=== PATIENT | male | born 1940 | race Caucasian/White ===

== ENCOUNTER 2016-09-03 01:22 | Inpatient (IN) | payer OTHER ==
[~2016-09-03] VITALS: Ht 180.3 cm; Wt 125.8 kg
[~2016-09-03 01:22] MED LIST: ACCOLATE20 MG PO; ADVAIR 250/501 DISK IH; ALLOPURINOL100 MG PO; ALTACE10 MG PO; APRESOLINE100 MG PO; B100 BALANCED100 MG PO; BENTYL20 MG PO; BYSTOLIC10 MG PO; CARDURA2 M1 PO; CATAPRES0.1 MG PO; CATAPRES0.2 MG PO; CELEBREX200 MG PO; CLONIDINE HCL0.2 MG PO; COLACE100 MG PO; COLESTID1 GM PO; COUMADIN,JANTOVE4 MG PO; COUMADIN,JANTOVE5 MG PO; COUMADIN2 MG PO; COUMADIN3 MG PO; COUMADIN4 MG PO; CYCLOBENZAPRINE10 MG PO; Coumadin PO; DAILY VITAMIN1 EAC4 PO; DICYCLOMINE HCL20 MG PO; DIGITEK250 MC2 PO; DIGOX250 MCG PO; DIGOXIN; DIGOXIN250 MCG PO; DOXAZOSIN MESYLA2 MG PO; DUONEB 2.5-0.5 M3 ML AEROSOL; DUONEB 2.5-0.5 M3 ML IH; ERGOCALCIF50000 UNIT PO; FENOFIBRATE160 M1 PO; FENOFIBRIC ACI135 MG PO; FEOSOL325 MG PO; FERRALET 90 TA1 EACH PO; FISH OIL 1,0001 EA10 PO; FISH OIL 1,0001 EAC7 PO; FISH OIL300 MG PO; FLECAINIDE ACE100 M1 PO; FLEXERIL10 MG PO; FLONASE16 G1 BOTH NARES; FUROSEMIDE40 MG PO; HYDRALAZINE HC100 MG PO; HYDROCODON-ACE1 EAC7 PO; HYDROCODON-ACE1 EAC8 PO; INVOKANA100 MG PO; IPRATR-ALBUTEROL3 ML IH; IRON27 MG PO; IRON325 M1 PO; JANUVIA100 MG PO; K-DUR10 MEQ PO; LANOXIN250 MCG PO; LASIX40 MG PO; LEVEMIR FL100 UNIT/1 SC; LEVEMIR FL100 UNITS/ SC; LEVO-T125 MCG PO; LEVOTHROID112 MCG PO; LEVOTHYROXINE112 MCG PO; LEVOTHYROXINE125 MCG PO; LIDOCAINE700 MG TD; LOPRESSOR50 MG PO; LOVAZA1 GM PO; MAXZIDE 75/501 EACH PO; MAXZIDE 75/51 TABLET PO; MEDROL4 MG PO; METAMUCIL PACKE1 PKT PO; METAMUCIL POWD798 GM PO; METOCLOPRAMIDE10 MG PO; METOLAZONE10 MG PO; METOLAZONE2.5 MG PO; METOLAZONE5 MG PO; METOPROLOL SUCC50 MG PO; METOPROLOL TART50 MG PO; MULTI-VITAMIN1 EAC4 PO; MULTIVITAMIN PO; NIASPAN500 MG PO; NITROQUICK0.4 MG PO; NORCO 5/3251 TABLET PO; NORCO 7.5/321 TABLET PO; NORVASC10 MG PO; NOVOLOG 10100 UNITS/ SC; NOVOLOG PE100 UNITS/ SC; NOVOLOG100 UNIT/1 SC; OMEPRAZOLE40 M1 PO; OXYCONTIN10 MG PO; PERCOCET 5/31 TABLET PO; PREDNISONE50 MG PO; PRILOSEC40 MG PO; PROTONIX40 MG PO; RAMIPRIL10 MG PO; SAW PALMETTO450 MG PO; SPIRIVA RESPIMAT4 GM IH; SPIRONOLACTONE50 MG PO; STOOL SOFTENER100 M1 PO; STOOL SOFTENER100 MG PO; SYNTHROID112 MCG PO; SYNTHROID150 MCG PO; SYNTHROID50 MCG PO; TRAMADOL HCL50 MG PO; TRESIBA FL200 UNIT/1 SC; TRIAMTERENE/HC1 EACH PO; TRILIPIX135 MG PO; TYLENOL EXTRA500 MG PO; ULTRAM ER100 MG PO; ULTRAM50 MG PO; UROXATRAL10 MG PO; VITAMIN B-12500 MC2 PO; VITAMIN B12 100MCG PO; VITAMIN B12-FO1 EACH PO; VITAMIN D31000 UNI2 PO; VITAMIN D31000 UNIT PO; VITAMIN D3400 UNI1 PO; VITAMIN D3400 UNIT PO; VITAMIN D34000 UNIT PO; WARFARIN SODIUM2 MG PO; WARFARIN SODIUM3 MG PO; WELCHOL3.75 GM PO; XOPENEX HFA15 GM IH; ZAFIRLUKAST20 M1 PO; ZITHROMAX250 MG PO; ZYRTEC10 M2 PO; levemir SC; novolog
[2016-09-03 02:19] LABS: POINT-OF-CARE METER ID UU13113702; POINT-OF-CARE USER ID 611181311
[2016-09-03 02:26] LABS: EOSINOPHIL (%) 0 % (0-5); HEMATOCRIT 26.3 % (38.0-50.0); IMMATURE GRANULOCYTE (%) 0.8 % (0.0-0.7); IMMATURE GRANULOCYTE COUNT 0.1 K/uL; INSTRUMENT ABS NEUTROPHIL CT 5.8 K/uL; LYMPHOCYTE COUNT 0.6 K/uL (1.0-2.8); MCH 27.5 PG (29.0-34.0); MCHC 31.2 G/DL (30.0-36.0); MCV 88.3 FL (86-99); MEAN PLAT.VOLUME 10.3 uM^3 (9.0-12.4); MONOCYTE (%) 8.6 % (3-12); MONOCYTE COUNT 0.6 K/uL (0-0.8); NEUTROPHIL (%) 81.8 % (45-76); NEUTROPHIL COUNT 5.8 K/uL (1.8-6.4); PLATELET COUNT 122 K/uL (156-360); RBC DIS.WIDTH-CV 17.8 % (11.8-14.6); RBC DIS.WIDTH-SD 54.6 % (39-53); RED BLOOD COUNT 2.98 M/uL (4.00-5.50); WHITE BLOOD COUNT 7.1 K/uL (4.1-10.2)
[2016-09-03 02:34] LABS: INTER. NORMALIZED RATIO 1.4; PTT 33.4 (25-32)
[2016-09-03 02:36] LABS: CHLORIDE 112 mEq/L (99-109); POTASSIUM 3.4 mEq/L (3.7-5.4); SODIUM 145 mEq/L (136-147)
[2016-09-03 02:38] LABS: GLUCOSE 133 mg/dL (70-99)
[2016-09-03 02:40] LABS: ANION GAP 12 MEQ/L (2-14)
[2016-09-03 02:42] LABS: GFR ESTIMATE (CALCULATED) 39 mL/min/
[2016-09-03 02:43] LABS: ALKALINE PHOSPHATASE 203 IU/L (3-129)
[2016-09-03 02:44] LABS: UREA NITROGEN (BUN) 72 mg/dL (9-23)
[2016-09-03 02:45] LABS: SALICYLATE < 5.0 MG/DL (15-30); TROP-I INTERPRETATION NEGATIVE; TROPONIN-I 0.05 ng/mL (0.0-0.30)
[2016-09-03 03:57] LABS: ADD MIUA? YES; BILIRUBIN NEGATIVE; BLOOD SMALL; COLOR YELLOW ((YELLOW)); GLUCOSE (STRIP) NEGATIVE; KETONES NEGATIVE; LEUKOCYTES SMALL; NITRITE NEGATIVE; PROTEIN (STRIP) NEGATIVE; SPECIFIC GRAVITY 1.011 (1.000-1.030); UROBILINOGEN 0.2 MG/DL (0.2-1.0)
[2016-09-03 04:03] LABS: BACTERIA NONE SEEN /HPF; EPITHELIAL CELLS RARE /HPF; HYALINE CASTS 15-20 /LPF; MUCUS NONE SEEN /LPF; RED BLOOD CELLS 0-5 /HPF (0-5); UCUL ADDED? NO; WHITE BLOOD CELLS 0-5 /HPF (0-5)
[2016-09-03 04:08] LABS: BASE EXCESS 0.6 mEq/L (-3 to +3); BICARBONATE 22.4 mEq/L (22-26); CARBOXY HGB 1.4 % (0-5); METHEMOGLOBIN 0.9 % (0-1.5); PCO2 25 mm Hg (35-45); PO2 136 mm Hg (80-100); pH 7.56 (7.35-7.45)
[2016-09-03 04:09] LABS: DEVICE NC; O2 FLOW 3 L/MIN; SITE LR; TOTAL RESP RATE 20 resp/min
[2016-09-03 05:24] LABS: IRON 99 MCG/DL (35-150)
[2016-09-03 05:47] VITALS: BP 136/63
[2016-09-03 06:08] VITALS: BP 137/55
[2016-09-03 06:13] LABS: DIGOXIN 0.9 ng/mL (0.8-2.0)
[2016-09-03 07:04] VITALS: BP 145/69
[2016-09-03 08:31] LABS: FERRITIN 889 NG/ML (22-322)
[2016-09-03] MEDS ORDERED: TRESIBA FL100 UNIT/1 SC (08:56)
[2016-09-03] MEDS ORDERED: BYSTOLIC20 MG PO (08:57)
[2016-09-03] MEDS ORDERED: FLOMAX0.4 MG PO (09:00)
[2016-09-03] MEDS ORDERED: BREO ELLIPTA I1 EACH IH (09:02)
[2016-09-03] MEDS ORDERED: COUMADIN3 MG PO (09:05)
[2016-09-03] MEDS ORDERED: NYSTATIN-TRIAMC15 GM TP (09:11)
[2016-09-03 16:04] VITALS: BP 128/60
[2016-09-03 21:55] LABS: POINT-OF-CARE METER ID UU13113725
[2016-09-03 23:05] VITALS: BP 128/60
[2016-09-04 06:50] VITALS: BP 129/60
[2016-09-04 07:12] LABS: HEMATOCRIT 26.7 % (38.0-50.0); MCH 28.8 PG (29.0-34.0); MCHC 31.5 G/DL (30.0-36.0); MCV 91.4 FL (86-99); MEAN PLAT.VOLUME 11.2 uM^3 (9.0-12.4); PLATELET COUNT 116 K/uL (156-360); RBC DIS.WIDTH-CV 18.2 % (11.8-14.6); RED BLOOD COUNT 2.92 M/uL (4.00-5.50); WHITE BLOOD COUNT 5.3 K/uL (4.1-10.2)
[2016-09-04 07:40] LABS: ALKALINE PHOSPHATASE 162 IU/L (3-129); ANION GAP 12 MEQ/L (2-14); CHLORIDE 118 MEQ/L (99-109); GFR ESTIMATE (CALCULATED) 53 mL/min/; POTASSIUM 3.1 MEQ/L (3.7-5.4); SAMPLE HEMOLYSIS CHECK 0; SAMPLE ICTERIC CHECK 0; SAMPLE LIPEMIA CHECK 0; SODIUM 151 MEQ/L (136-147); TOTAL BILIRUBIN 0.9 MG/DL (0.0-1.0); UREA NITROGEN (BUN) 60 mg/dL (9-23)
[2016-09-04 07:46] LABS: GLUCOSE 43 mg/dL (70-99)
[2016-09-04 07:54] LABS: INTER. NORMALIZED RATIO 1.5; PROTHROMBIN TIME 15.2 (9.2-11.2)
[2016-09-04 12:10] VITALS: BP 122/58
[2016-09-04 13:13] LABS: TYPE OF FLUID PARACENTESIS
[2016-09-04 13:36] LABS: BODY FLUID RBC'S 3000 /MM^3 (0-100); BODY FLUID WBC'S 1515 /MM^3 (0-500)
[2016-09-04 13:47] LABS: BODY FLUID LDH 66 IU/L
[2016-09-04 14:11] LABS: BODY FLUID EOSINOPHILS 0 % (0-25); MONO RAW COUNT 94; MONONUCLEAR WBC'S 94 %; POLY RAW COUNT 6; POLYNUCLEAR WBC'S 6 % (0-25)
[2016-09-04 15:00] VITALS: BP 126/61
[2016-09-04 16:37] LABS: POINT-OF-CARE METER ID UU13113725
[2016-09-05 06:51] LABS: EOSINOPHIL (%) 0 % (0-5); HEMATOCRIT 28.1 % (38.0-50.0); IMMATURE GRANULOCYTE (%) 0.5 % (0.0-0.7); INSTRUMENT ABS NEUTROPHIL CT 6.1 K/uL; LYMPHOCYTE COUNT 0.7 K/uL (1.0-2.8); MCH 28.5 PG (29.0-34.0); MCHC 30.6 G/DL (30.0-36.0); MEAN PLAT.VOLUME 10.7 uM^3 (9.0-12.4); MONOCYTE (%) 7.5 % (3-12); MONOCYTE COUNT 0.6 K/uL (0-0.8); NEUTROPHIL (%) 82.6 % (45-76); NEUTROPHIL COUNT 6.1 K/uL (1.8-6.4); PLATELET COUNT 126 K/uL (156-360); RBC DIS.WIDTH-CV 18.6 % (11.8-14.6); RBC DIS.WIDTH-SD 61.9 % (39-53); RED BLOOD COUNT 3.02 M/uL (4.00-5.50); WHITE BLOOD COUNT 7.4 K/uL (4.1-10.2)
[2016-09-05 07:25] LABS: INTER. NORMALIZED RATIO 1.6; PROTHROMBIN TIME 16.7 (9.2-11.2)
[2016-09-05 07:32] LABS: ANION GAP 10 MEQ/L (2-14); CHLORIDE 113 MEQ/L (99-109); GFR ESTIMATE (CALCULATED) 53 mL/min/; POTASSIUM 2.8 MEQ/L (3.7-5.4); SAMPLE HEMOLYSIS CHECK 0; SAMPLE ICTERIC CHECK 0; SAMPLE LIPEMIA CHECK 0; SODIUM 145 MEQ/L (136-147); TOTAL BILIRUBIN 0.9 MG/DL (0.0-1.0); UREA NITROGEN (BUN) 60 mg/dL (9-23)
[2016-09-05 07:33] LABS: ALKALINE PHOSPHATASE 219 IU/L (3-129); GLUCOSE 38 mg/dL (70-99)
[2016-09-05 08:12] VITALS: BP 136/58
[2016-09-05 08:13] LABS: POINT-OF-CARE METER ID UU13113725
[2016-09-05 15:17] VITALS: BP 103/60
[2016-09-05 15:28] VITALS: BP 170/93
[2016-09-05 17:45] LABS: POINT-OF-CARE METER ID UU13113725
[2016-09-05 21:48] LABS: POINT-OF-CARE METER ID UU13113725
[2016-09-06 00:09] LABS: POINT-OF-CARE METER ID UU13113725
[2016-09-06 05:03] LABS: POINT-OF-CARE METER ID UU13113725
[2016-09-06 05:32] LABS: EOSINOPHIL (%) 0 % (0-5); HEMATOCRIT 29.7 % (38.0-50.0); IMMATURE GRANULOCYTE (%) 0.7 % (0.0-0.7); IMMATURE GRANULOCYTE COUNT 0.1 K/uL; INSTRUMENT ABS NEUTROPHIL CT 7.3 K/uL; LYMPHOCYTE COUNT 0.7 K/uL (1.0-2.8); MCHC 30.6 G/DL (30.0-36.0); MCV 91.4 FL (86-99); MEAN PLAT.VOLUME 11.1 uM^3 (9.0-12.4); MONOCYTE (%) 6.2 % (3-12); MONOCYTE COUNT 0.5 K/uL (0-0.8); NEUTROPHIL (%) 84.9 % (45-76); NEUTROPHIL COUNT 7.3 K/uL (1.8-6.4); PLATELET COUNT 120 K/uL (156-360); RBC DIS.WIDTH-CV 18.5 % (11.8-14.6); RBC DIS.WIDTH-SD 59.7 % (39-53); RED BLOOD COUNT 3.25 M/uL (4.00-5.50); WHITE BLOOD COUNT 8.6 K/uL (4.1-10.2)
[2016-09-06 06:02] LABS: ALKALINE PHOSPHATASE 207 IU/L (3-129); ANION GAP 12 MEQ/L (2-14); CHLORIDE 108 MEQ/L (99-109); GFR ESTIMATE (CALCULATED) 48 mL/min/; INTER. NORMALIZED RATIO 1.7; POTASSIUM 3.2 MEQ/L (3.7-5.4); PROTHROMBIN TIME 18.1 (9.2-11.2); SAMPLE HEMOLYSIS CHECK 0; SAMPLE ICTERIC CHECK 0; SAMPLE LIPEMIA CHECK 0; SODIUM 140 MEQ/L (136-147); UREA NITROGEN (BUN) 57 mg/dL (9-23)
[2016-09-06 06:03] LABS: GLUCOSE 114 mg/dL (70-99); TOTAL BILIRUBIN 0.7 MG/DL (0.0-1.0)
[2016-09-06 07:51] VITALS: BP 134/57
[2016-09-06 11:39] LABS: POINT-OF-CARE METER ID UU13113725
[2016-09-06 16:18] VITALS: BP 117/58
[2016-09-06 17:08] LABS: POINT-OF-CARE METER ID UU13113725
[2016-09-06 23:38] VITALS: BP 99/52
[2016-09-07 06:46] LABS: EOSINOPHIL (%) 0 % (0-5); IMMATURE GRANULOCYTE (%) 0.5 % (0.0-0.7); INSTRUMENT ABS NEUTROPHIL CT 4.1 K/uL; LYMPHOCYTE COUNT 0.9 K/uL (1.0-2.8); MCH 28.5 PG (29.0-34.0); MCV 91.8 FL (86-99); MEAN PLAT.VOLUME 11.1 uM^3 (9.0-12.4); MONOCYTE (%) 8.2 % (3-12); MONOCYTE COUNT 0.5 K/uL (0-0.8); NEUTROPHIL (%) 74.3 % (45-76); NEUTROPHIL COUNT 4.1 K/uL (1.8-6.4); PLATELET COUNT 106 K/uL (156-360); RBC DIS.WIDTH-CV 18.6 % (11.8-14.6); RBC DIS.WIDTH-SD 61.1 % (39-53); RED BLOOD COUNT 3.16 M/uL (4.00-5.50); WHITE BLOOD COUNT 5.5 K/uL (4.1-10.2)
[2016-09-07 06:48] LABS: INTER. NORMALIZED RATIO 1.9; PROTHROMBIN TIME 20.1 (9.2-11.2)
[2016-09-07 07:07] LABS: ALKALINE PHOSPHATASE 159 IU/L (3-129); ANION GAP 8 MEQ/L (2-14); CHLORIDE 110 MEQ/L (99-109); GFR ESTIMATE (CALCULATED) 45 mL/min/; GLUCOSE 89 mg/dL (70-99); POTASSIUM 3.3 MEQ/L (3.7-5.4); SAMPLE HEMOLYSIS CHECK 0; SAMPLE ICTERIC CHECK 0; SAMPLE LIPEMIA CHECK 0; SODIUM 140 MEQ/L (136-147); TOTAL BILIRUBIN 0.7 MG/DL (0.0-1.0); UREA NITROGEN (BUN) 56 mg/dL (9-23)
[2016-09-07 07:15] VITALS: BP 114/58
[2016-09-07 08:19] LABS: POINT-OF-CARE METER ID UU13113725
[2016-09-07 09:29] VITALS: BP 125/58
[2016-09-07 12:21] VITALS: BP 128/59
[2016-09-07 12:22] LABS: POINT-OF-CARE METER ID UU13113725
[2016-09-07 15:58] VITALS: BP 120/58
[2016-09-07 18:17] LABS: POINT-OF-CARE METER ID UU13113725
[2016-09-07 21:34] LABS: POINT-OF-CARE METER ID UU13113725
[2016-09-07 21:55] VITALS: BP 125/58
[2016-09-07 23:22] VITALS: BP 121/56
[2016-09-08 06:08] LABS: EOSINOPHIL (%) 0 % (0-5); HEMATOCRIT 28.5 % (38.0-50.0); IMMATURE GRANULOCYTE (%) 0.8 % (0.0-0.7); INSTRUMENT ABS NEUTROPHIL CT 3.5 K/uL; MCH 28.9 PG (29.0-34.0); MCHC 31.2 G/DL (30.0-36.0); MCV 92.5 FL (86-99); MEAN PLAT.VOLUME 10.8 uM^3 (9.0-12.4); MONOCYTE (%) 9.6 % (3-12); MONOCYTE COUNT 0.5 K/uL (0-0.8); NEUTROPHIL (%) 69.9 % (45-76); NEUTROPHIL COUNT 3.5 K/uL (1.8-6.4); PLATELET COUNT 101 K/uL (156-360); RBC DIS.WIDTH-CV 19.1 % (11.8-14.6); RBC DIS.WIDTH-SD 62.8 % (39-53); RED BLOOD COUNT 3.08 M/uL (4.00-5.50)
[2016-09-08 06:35] VITALS: BP 113/56
[2016-09-08 06:36] LABS: ALKALINE PHOSPHATASE 169 IU/L (3-129); ANION GAP 7 MEQ/L (2-14); CHLORIDE 110 MEQ/L (99-109); GFR ESTIMATE (CALCULATED) 53 mL/min/; GLUCOSE 87 mg/dL (70-99); INTER. NORMALIZED RATIO 1.8; PROTHROMBIN TIME 18.3 (9.2-11.2); SAMPLE HEMOLYSIS CHECK 0; SAMPLE ICTERIC CHECK 0; SAMPLE LIPEMIA CHECK 0; SODIUM 139 MEQ/L (136-147); TOTAL BILIRUBIN 0.7 MG/DL (0.0-1.0); UREA NITROGEN (BUN) 55 mg/dL (9-23)
[2016-09-08 06:37] LABS: POINT-OF-CARE METER ID UU13113725
[2016-09-08 06:48] LABS: POTASSIUM 4.1 MEQ/L (3.7-5.4)
[2016-09-08 11:30] LABS: POINT-OF-CARE METER ID UU13113725
[2016-09-08] MEDS ORDERED: DUONEB 2.5-0.5 M3 ML AEROSOL (12:52)
[2016-09-08] MEDS ORDERED: XIFAXAN550 MG PO (12:52)
[2016-09-08] MEDS ORDERED: CLONIDINE HCL0.2 MG PO (12:53)
[2016-09-08] MEDS ORDERED: BYSTOLIC20 MG PO (12:53)
[2016-09-08] MEDS ORDERED: ENULOSE10 GM/15 M PO (12:55)
[2016-09-08] MEDS ORDERED: TRESIBA FL100 UNIT/1 SC (12:56)
[2016-09-08 15:10] VITALS: BP 123/56
== END 2016-09-08 16:53 | DRG 442 ==
LOC: EME 01:22 → 5EAST 04:26 → EDOF 04:26 → 5EAST 15:00
PROVIDERS: Emergency Medicine; Hospitalist; Internal Medicine
PROC: 30233N1 Transfusion of Nonautologous Red Blood Cells into Peripheral Vein, Percutaneous Approach (ICD-10-PCS; principal; 2016-09-03)
PROC: 0W9G30Z Drainage of Peritoneal Cavity with Drainage Device, Percutaneous Approach (ICD-10-PCS; 2016-09-04)
DX: K72.90 Hepatic failure, unspecified without coma (principal); E87.4 Mixed disorder of acid-base balance; L89.322 Pressure ulcer of left buttock, stage 2; L97.521 Non-pressure chronic ulcer of other part of left foot limited to breakdown of skin; L97.821 Non-pressure chronic ulcer of other part of left lower leg limited to breakdown of skin; D69.6 Thrombocytopenia, unspecified; R18.8 Other ascites; I13.0 Hypertensive heart and chronic kidney disease with heart failure and stage 1 through stage 4 chronic kidney disease, or unspecified chronic kidney disease; N18.9 Chronic kidney disease, unspecified; I50.22 Chronic systolic (congestive) heart failure; E11.622 Type 2 diabetes mellitus with other skin ulcer; E11.22 Type 2 diabetes mellitus with diabetic chronic kidney disease; I48.91 Unspecified atrial fibrillation; E87.6 Hypokalemia; T88.8XXA Other specified complications of surgical and medical care, not elsewhere classified, initial encounter; Y84.4 Aspiration of fluid as the cause of abnormal reaction of the patient, or of later complication, without mention of misadventure at the time of the procedure; Y92.230 Patient room in hospital as the place of occurrence of the external cause; I87.8 Other specified disorders of veins; I89.0 Lymphedema, not elsewhere classified; J44.9 Chronic obstructive pulmonary disease, unspecified; K22.0 Achalasia of cardia; R13.12 Dysphagia, oropharyngeal phase; K21.9 Gastro-esophageal reflux disease without esophagitis; K74.69 Other cirrhosis of liver; D64.9 Anemia, unspecified; E03.9 Hypothyroidism, unspecified; E66.01 Morbid (severe) obesity due to excess calories; Z68.38 Body mass index [BMI] 38.0-38.9, adult; Z79.01 Long term (current) use of anticoagulants; Z79.4 Long term (current) use of insulin; Z87.891 Personal history of nicotine dependence; Z95.0 Presence of cardiac pacemaker; Z88.1 Allergy status to other antibiotic agents
CPT/HCPCS: 36415; 36600; 70450; 71010; 74230; 76705; 80053; 80162; 81003; 82140; 82728; 82803; 82945; 82948; 83540; 83605; 83615 91; 84443; 84466; 84484; 85025; 85027; 85610; 85730; 86900; 86901; 86920; 87040; 87070; 87075; 87205; 88108; 88305; 89051; 92610 GN; 92611 GN; 93005; 94640 76; 94799; 99202; 99281; 99285; C9113; G0480; J1815; J1956; J7030; P9016

== ENCOUNTER 2016-10-01 22:50 | Inpatient (IN) | payer OTHER ==
[~2016-10-01] VITALS: Ht 177.8 cm; Wt 132.7 kg
[~2016-10-01 22:50] MED LIST changes: +BREO ELLIPTA I1 EACH IH; +BYSTOLIC20 MG PO; +ENULOSE10 GM/15 M PO; +FLOMAX0.4 MG PO; +NYSTATIN-TRIAMC15 GM TP; +TRESIBA FL100 UNIT/1 SC; +XIFAXAN550 MG PO
[2016-10-01 23:41] LABS: HEMATOCRIT 31.4 % (38.0-50.0); MCH 28.4 PG (29.0-34.0); MCHC 30.9 G/DL (30.0-36.0); MCV 91.8 FL (86-99); MEAN PLAT.VOLUME 11.3 uM^3 (9.0-12.4); PLATELET COUNT 97 K/uL (156-360); RBC DIS.WIDTH-CV 17.2 % (11.8-14.6); RBC DIS.WIDTH-SD 58.1 % (39-53); RED BLOOD COUNT 3.42 M/uL (4.00-5.50); WHITE BLOOD COUNT 16.6 K/uL (4.1-10.2)
[2016-10-01 23:52] LABS: CHLORIDE 105 mEq/L (99-109); POTASSIUM 4.8 mEq/L (3.7-5.4); SODIUM 139 mEq/L (136-147)
[2016-10-01 23:54] LABS: GLUCOSE 259 mg/dL (70-99)
[2016-10-01 23:56] LABS: ANION GAP 10 MEQ/L (2-14); TOTAL BILIRUBIN 0.8 mg/dL (0.0-1.0)
[2016-10-01 23:58] LABS: ALKALINE PHOSPHATASE 158 IU/L (3-129); GFR ESTIMATE (CALCULATED) 25 mL/min/
[2016-10-01 23:59] LABS: UREA NITROGEN (BUN) 61 mg/dL (9-23)
[2016-10-02 00:02] LABS: TROP-I INTERPRETATION NEGATIVE; TROPONIN-I 0.05 ng/mL (0.0-0.30)
[2016-10-02 00:19] LABS: EOSINOPHIL (%) 0 % (0-5); HEMATOLOGY COMMENT 1 SN; IMMATURE GRANULOCYTE (%) 0.9 % (0.0-0.7); IMMATURE GRANULOCYTE COUNT 0.2 K/uL; INSTRUMENT ABS NEUTROPHIL CT 14.1 K/uL; LYMPHOCYTE COUNT 1.4 K/uL (1.0-2.8); MONOCYTE (%) 5.2 % (3-12); MONOCYTE COUNT 0.9 K/uL (0-0.8); NEUTROPHIL (%) 85.1 % (45-76); NEUTROPHIL COUNT 14.1 K/uL (1.8-6.4)
[2016-10-02] MEDS ORDERED: BREO ELLIPTA I1 EACH IH (02:30)
[2016-10-02 05:59] LABS: EOSINOPHIL (%) 0 % (0-5); HEMATOCRIT 27.8 % (38.0-50.0); IMMATURE GRANULOCYTE (%) 0.6 % (0.0-0.7); IMMATURE GRANULOCYTE COUNT 0.1 K/uL; INSTRUMENT ABS NEUTROPHIL CT 10.7 K/uL; LYMPHOCYTE COUNT 1.3 K/uL (1.0-2.8); MCH 28.7 PG (29.0-34.0); MCHC 31.3 G/DL (30.0-36.0); MCV 91.7 FL (86-99); MEAN PLAT.VOLUME 12.3 uM^3 (9.0-12.4); MONOCYTE (%) 5.8 % (3-12); MONOCYTE COUNT 0.7 K/uL (0-0.8); NEUTROPHIL (%) 83.5 % (45-76); NEUTROPHIL COUNT 10.7 K/uL (1.8-6.4); PLATELET COUNT 76 K/uL (156-360); RBC DIS.WIDTH-CV 17.1 % (11.8-14.6); RBC DIS.WIDTH-SD 57.9 % (39-53); RED BLOOD COUNT 3.03 M/uL (4.00-5.50); WHITE BLOOD COUNT 12.8 K/uL (4.1-10.2)
[2016-10-02 06:13] LABS: INTER. NORMALIZED RATIO 2.2; PROTHROMBIN TIME 22.5 (9.2-11.2)
[2016-10-02 06:15] LABS: CHLORIDE 113 mEq/L (99-109); POTASSIUM 4.4 mEq/L (3.7-5.4); SODIUM 140 mEq/L (136-147)
[2016-10-02 06:17] LABS: GLUCOSE 164 mg/dL (70-99)
[2016-10-02 06:18] LABS: ANION GAP 5 MEQ/L (2-14)
[2016-10-02 06:21] LABS: GFR ESTIMATE (CALCULATED) 26 mL/min/
[2016-10-02 06:22] LABS: UREA NITROGEN (BUN) 62 mg/dL (9-23)
[2016-10-02 06:24] LABS: TROP-I INTERPRETATION NEGATIVE; TROPONIN-I 0.04 ng/mL (0.0-0.30)
[2016-10-02 07:47] LABS: POINT-OF-CARE METER ID UU14100415
[2016-10-02 12:30] LABS: POINT-OF-CARE METER ID UU14100415
[2016-10-02 13:01] LABS: TROP-I INTERPRETATION NEGATIVE; TROPONIN-I 0.04 ng/mL (0.0-0.30)
[2016-10-02 17:05] VITALS: BP 117/56
[2016-10-02 23:51] VITALS: BP 120/54
[2016-10-03 04:51] LABS: C DIFF TOXIN NEGATIVE (NEGATIVE)
[2016-10-03 04:54] LABS: PROBE CHECK PASS; SPECIMEN PROCESSING CONTROL PASS
[2016-10-03 06:02] LABS: INTER. NORMALIZED RATIO 1.9
[2016-10-03 06:39] LABS: POINT-OF-CARE METER ID UU14149397
[2016-10-03 09:27] VITALS: BP 110/58
[2016-10-03] MEDS ORDERED: CLONIDINE HCL0.2 MG PO (15:30)
[2016-10-03] MEDS ORDERED: ENULOSE10 GM/15 M PO (15:31)
[2016-10-03 15:35] VITALS: BP 120/70
[2016-10-03] MEDS ORDERED: HUMALOG100 UNIT/1 SC (15:40)
[2016-10-03] MEDS ORDERED: COUMADIN5 MG PO (15:42)
[2016-10-03] MEDS ORDERED: TYLENOL REGULA325 MG PO (15:43)
[2016-10-03] MEDS ORDERED: DUONEB 2.5-0.5 M3 ML AEROSOL (15:44)
[2016-10-03 16:36] LABS: POINT-OF-CARE METER ID UU14149397
[2016-10-03 19:46] VITALS: BP 127/59
[2016-10-03 19:53] VITALS: BP 125/69
[2016-10-03 23:40] VITALS: BP 128/63
[2016-10-04 05:36] VITALS: BP 123/68
[2016-10-04 06:47] LABS: EOSINOPHIL (%) 0.1 % (0-5); HEMATOCRIT 27.6 % (38.0-50.0); IMMATURE GRANULOCYTE (%) 0.9 % (0.0-0.7); IMMATURE GRANULOCYTE COUNT 0.1 K/uL; INSTRUMENT ABS NEUTROPHIL CT 7.4 K/uL; LYMPHOCYTE COUNT 1.5 K/uL (1.0-2.8); MCH 29.6 PG (29.0-34.0); MCHC 31.9 G/DL (30.0-36.0); MCV 92.9 FL (86-99); MEAN PLAT.VOLUME 12.4 uM^3 (9.0-12.4); MONOCYTE (%) 6.4 % (3-12); MONOCYTE COUNT 0.6 K/uL (0-0.8); NEUTROPHIL (%) 76.5 % (45-76); NEUTROPHIL COUNT 7.4 K/uL (1.8-6.4); PLATELET COUNT 105 K/uL (156-360); RBC DIS.WIDTH-CV 17.1 % (11.8-14.6); RBC DIS.WIDTH-SD 58.3 % (39-53); RED BLOOD COUNT 2.97 M/uL (4.00-5.50); WHITE BLOOD COUNT 9.7 K/uL (4.1-10.2)
[2016-10-04 06:50] LABS: INTER. NORMALIZED RATIO 2.2; PROTHROMBIN TIME 23.1 (9.2-11.2)
[2016-10-04 07:01] LABS: POINT-OF-CARE METER ID UU14188577
[2016-10-04 07:02] LABS: ANION GAP 9 MEQ/L (2-14); CHLORIDE 109 MEQ/L (99-109); GFR ESTIMATE (CALCULATED) 33 mL/min/; POTASSIUM 4.4 MEQ/L (3.7-5.4); SAMPLE HEMOLYSIS CHECK 0; SAMPLE ICTERIC CHECK 0; SAMPLE LIPEMIA CHECK 0; SODIUM 140 MEQ/L (136-147); UREA NITROGEN (BUN) 64 mg/dL (9-23)
[2016-10-04 07:08] LABS: GLUCOSE 88 mg/dL (70-99)
[2016-10-04 07:44] LABS: DIGOXIN 1.6 ng/mL (0.8-2.0)
[2016-10-04 08:35] VITALS: BP 131/59
[2016-10-04 11:52] LABS: POINT-OF-CARE METER ID UU14149397
[2016-10-04 13:38] VITALS: BP 160/74
[2016-10-04 16:26] LABS: POINT-OF-CARE METER ID UU14149397
[2016-10-04 20:04] VITALS: BP 128/57
[2016-10-04 21:47] LABS: POINT-OF-CARE METER ID UU14149397
[2016-10-04 23:41] VITALS: BP 126/78
[2016-10-05 03:56] VITALS: BP 136/82
[2016-10-05 06:26] LABS: HEMATOCRIT 26.6 % (38.0-50.0); MCH 29.5 PG (29.0-34.0); MCV 92.4 FL (86-99); MEAN PLAT.VOLUME 11.9 uM^3 (9.0-12.4); PLATELET COUNT 117 K/uL (156-360); RBC DIS.WIDTH-CV 16.9 % (11.8-14.6); RBC DIS.WIDTH-SD 57.4 % (39-53); RED BLOOD COUNT 2.88 M/uL (4.00-5.50)
[2016-10-05 06:51] LABS: ALKALINE PHOSPHATASE 178 IU/L (3-129); ANION GAP 10 MEQ/L (2-14); CHLORIDE 110 MEQ/L (99-109); GFR ESTIMATE (CALCULATED) 35 mL/min/; GLUCOSE 78 mg/dL (70-99); POTASSIUM 4.2 MEQ/L (3.7-5.4); SAMPLE HEMOLYSIS CHECK 0; SAMPLE ICTERIC CHECK 0; SAMPLE LIPEMIA CHECK 0; SODIUM 141 MEQ/L (136-147); TOTAL BILIRUBIN 0.6 MG/DL (0.0-1.0); UREA NITROGEN (BUN) 65 mg/dL (9-23)
[2016-10-05 07:12] LABS: INTER. NORMALIZED RATIO 2.3; PROTHROMBIN TIME 23.8 (9.2-11.2)
[2016-10-05 07:38] LABS: ABS NEUTROPHIL COUNT 5.9; ATYPICAL LYMPHOCYTE 1.7 %; EOSINOPHIL ABS CT 0.1; EOSINOPHILS 0.9 % (0-5.0); INSTRUMENT ABS NEUTROPHIL CT 4.7 K/uL; LYMPHOCYTES 9.6 % (15.0-45.0); SEG.NEUTROPHILS 84.3 % (46.0-76.0); SMUDGE CELLS 5.3
[2016-10-05 08:29] VITALS: BP 162/64
[2016-10-05 12:17] LABS: POINT-OF-CARE METER ID UU14188577
[2016-10-05 12:34] VITALS: BP 130/66
[2016-10-05 16:28] VITALS: BP 140/72
[2016-10-05 17:11] LABS: POINT-OF-CARE METER ID UU14149397
[2016-10-05 19:33] VITALS: BP 131/62
[2016-10-05 22:12] LABS: POINT-OF-CARE METER ID UU14149397
[2016-10-05 23:20] VITALS: BP 133/60
[2016-10-06 04:40] VITALS: BP 126/59
[2016-10-06 06:49] LABS: BASOPHIL COUNT 0.1 K/uL (0-0.1); EOSINOPHIL (%) 4.2 % (0-5); EOSINOPHIL COUNT 0.3 K/uL (0-0.3); HEMATOCRIT 27.8 % (38.0-50.0); IMMATURE GRANULOCYTE (%) 4.2 % (0.0-0.7); IMMATURE GRANULOCYTE COUNT 0.3 K/uL; INSTRUMENT ABS NEUTROPHIL CT 4.2 K/uL; LYMPHOCYTE COUNT 1.4 K/uL (1.0-2.8); MCH 28.6 PG (29.0-34.0); MCHC 30.9 G/DL (30.0-36.0); MCV 92.4 FL (86-99); MEAN PLAT.VOLUME 11.7 uM^3 (9.0-12.4); MONOCYTE (%) 7.3 % (3-12); MONOCYTE COUNT 0.5 K/uL (0-0.8); NEUTROPHIL (%) 63.1 % (45-76); NEUTROPHIL COUNT 4.2 K/uL (1.8-6.4); PLATELET COUNT 139 K/uL (156-360); RBC DIS.WIDTH-CV 16.8 % (11.8-14.6); RBC DIS.WIDTH-SD 57.1 % (39-53); RED BLOOD COUNT 3.01 M/uL (4.00-5.50); WHITE BLOOD COUNT 6.7 K/uL (4.1-10.2)
[2016-10-06 06:56] LABS: INTER. NORMALIZED RATIO 2.7; PROTHROMBIN TIME 28.3 (9.2-11.2)
[2016-10-06 07:23] LABS: ANION GAP 8 MEQ/L (2-14); CHLORIDE 107 MEQ/L (99-109); GFR ESTIMATE (CALCULATED) 42 mL/min/; POTASSIUM 4.2 MEQ/L (3.7-5.4); SAMPLE HEMOLYSIS CHECK 0; SAMPLE ICTERIC CHECK 0; SAMPLE LIPEMIA CHECK 0; SODIUM 137 MEQ/L (136-147); UREA NITROGEN (BUN) 62 mg/dL (9-23)
[2016-10-06 07:25] LABS: GLUCOSE 112 mg/dL (70-99)
[2016-10-06 07:30] LABS: ALKALINE PHOSPHATASE 201 IU/L (3-129); TOTAL BILIRUBIN 0.6 MG/DL (0.0-1.0)
[2016-10-06 08:25] VITALS: BP 136/76
[2016-10-06] MEDS ORDERED: DIGOXIN125 MCG PO (09:35)
[2016-10-06] MEDS ORDERED: AMOX TR-K CLV1 EAC3 PO (09:37)
[2016-10-06 15:04] VITALS: BP 112/54
[2016-10-06 21:33] VITALS: BP 133/72
[2016-10-07] VITALS (7 sets, daily range): BP systolic 119–151; BP diastolic 58–71
[2016-10-07 07:07] LABS: PROTHROMBIN TIME 31.4 (9.2-11.2)
[2016-10-07 16:42] LABS: POINT-OF-CARE METER ID UU14149397
[2016-10-07 22:17] LABS: POINT-OF-CARE METER ID UU14149397
[2016-10-08 03:23] LABS: POINT-OF-CARE METER ID UU14149397
[2016-10-08 04:25] VITALS: BP 104/51
[2016-10-08 06:38] LABS: HEMATOCRIT 28.2 % (38.0-50.0); MCH 28.1 PG (29.0-34.0); MCHC 30.5 G/DL (30.0-36.0); MCV 92.2 FL (86-99); MEAN PLAT.VOLUME 10.7 uM^3 (9.0-12.4); PLATELET COUNT 178 K/uL (156-360); RBC DIS.WIDTH-CV 16.8 % (11.8-14.6); RBC DIS.WIDTH-SD 56.4 % (39-53); RED BLOOD COUNT 3.06 M/uL (4.00-5.50); WHITE BLOOD COUNT 6.6 K/uL (4.1-10.2)
[2016-10-08 06:40] LABS: POINT-OF-CARE METER ID UU14149397
[2016-10-08 06:51] LABS: INTER. NORMALIZED RATIO 2.9; PROTHROMBIN TIME 30.8 (9.2-11.2)
[2016-10-08 07:13] LABS: ANION GAP 7 MEQ/L (2-14); CHLORIDE 111 MEQ/L (99-109); GFR ESTIMATE (CALCULATED) 57 mL/min/; GLUCOSE 104 mg/dL (70-99); SAMPLE HEMOLYSIS CHECK 0; SAMPLE ICTERIC CHECK 0; SAMPLE LIPEMIA CHECK 0; SODIUM 140 MEQ/L (136-147); UREA NITROGEN (BUN) 47 mg/dL (9-23)
[2016-10-08 08:01] VITALS: BP 130/60
[2016-10-08 08:23] LABS: ABS NEUTROPHIL COUNT 4.3; ANISOCYTOSIS 1+; BASOPHILS 3.5 %; EOSINOPHIL ABS CT 0.1; EOSINOPHILS 1.7 % (0-5.0); INSTRUMENT ABS NEUTROPHIL CT 4.1 K/uL; LYMPHOCYTES 23.3 % (15.0-45.0); MICROCYTOSIS 1+; MYELOCYTES 2.6 %; OVALOCYTES 1+; PLAT.SUFFICIENCY ADEQUATE; SEG.NEUTROPHILS 65.5 % (46.0-76.0); TARGET CELLS 1+
[2016-10-08 11:54] VITALS: BP 133/63
[2016-10-08] MEDS ORDERED: COUMADIN2 MG PO (14:28)
[2016-10-08 15:50] VITALS: BP 141/66
[2016-10-08 19:52] VITALS: BP 117/54
[2016-10-08 23:57] VITALS: BP 135/64
[2016-10-09 03:07] VITALS: BP 137/65
[2016-10-09 06:44] LABS: INTER. NORMALIZED RATIO 2.8; PROTHROMBIN TIME 29.9 (9.2-11.2)
[2016-10-09 08:16] VITALS: BP 138/69
[2016-10-09 12:25] LABS: POINT-OF-CARE METER ID UU14149397
== END 2016-10-09 16:20 | DRG 871 ==
LOC: EME → EDBD 22:50 → EDOF 10-02 02:50 → 3EAST 10-02 02:50 → EDOF 10-02 07:39 → 3EAST 10-02 16:03
PROVIDERS: Emergency Medicine; Hospitalist; Internal Medicine; Internal Medicine Nephrology; Pediatrics
DX: A41.9 Sepsis, unspecified organism (principal); N17.0 Acute kidney failure with tubular necrosis; N18.4 Chronic kidney disease, stage 4 (severe); I13.0 Hypertensive heart and chronic kidney disease with heart failure and stage 1 through stage 4 chronic kidney disease, or unspecified chronic kidney disease; I50.22 Chronic systolic (congestive) heart failure; L03.115 Cellulitis of right lower limb; R18.8 Other ascites; Z68.41 Body mass index [BMI] 40.0-44.9, adult; B96.89 Other specified bacterial agents as the cause of diseases classified elsewhere; D64.9 Anemia, unspecified; E03.9 Hypothyroidism, unspecified; J44.9 Chronic obstructive pulmonary disease, unspecified; E11.22 Type 2 diabetes mellitus with diabetic chronic kidney disease; E66.01 Morbid (severe) obesity due to excess calories; G47.33 Obstructive sleep apnea (adult) (pediatric); I48.2 Chronic atrial fibrillation; I87.2 Venous insufficiency (chronic) (peripheral); I87.8 Other specified disorders of veins; K74.69 Other cirrhosis of liver; K75.81 Nonalcoholic steatohepatitis (NASH); Z16.12 Extended spectrum beta lactamase (ESBL) resistance; Z79.01 Long term (current) use of anticoagulants; Z79.4 Long term (current) use of insulin; Z95.0 Presence of cardiac pacemaker; Z86.14 Personal history of Methicillin resistant Staphylococcus aureus infection
CPT/HCPCS: 36415; 76770; 80048; 80053; 80162; 80202; 81003; 82140; 82948; 83605; 84100; 84484; 85025; 85610; 87040; 87077; 87086; 87186; 87493; 87801; 93971; 94640; 94640 76; 97530 GO; 99202; 99281; 99285; A6260; J0295; J0881; J1335; J1815; J2185; J2270; J3370; J7030; J7050; P9047; S0028

== ENCOUNTER 2016-11-18 15:09 | Inpatient (IN) | payer OTHER ==
[~2016-11-18] VITALS: Ht 177.8 cm; Wt 132.0 kg
[~2016-11-18 15:09] MED LIST changes: +AMOX TR-K CLV1 EAC3 PO; +COUMADIN5 MG PO; +DIGOXIN125 MCG PO; +HUMALOG100 UNIT/1 SC; +TYLENOL REGULA325 MG PO
[2016-11-18 16:12] LABS: HEMATOCRIT 28.8 % (38.0-50.0); MCH 28.9 PG (29.0-34.0); MCHC 31.6 G/DL (30.0-36.0); MCV 91.4 FL (86-99); MEAN PLAT.VOLUME 9.8 uM^3 (9.0-12.4); PLATELET COUNT 111 K/uL (156-360); RBC DIS.WIDTH-CV 15.4 % (11.8-14.6); RED BLOOD COUNT 3.15 M/uL (4.00-5.50); WHITE BLOOD COUNT 5.4 K/uL (4.1-10.2)
[2016-11-18 16:21] LABS: CHLORIDE 111 mEq/L (99-109); POTASSIUM 5.2 mEq/L (3.7-5.4); SODIUM 142 mEq/L (136-147)
[2016-11-18 16:23] LABS: GLUCOSE 106 mg/dL (70-99)
[2016-11-18 16:24] LABS: ANION GAP 9 MEQ/L (2-14)
[2016-11-18 16:27] LABS: GFR ESTIMATE (CALCULATED) 28 mL/min/
[2016-11-18 16:28] LABS: UREA NITROGEN (BUN) 52 mg/dL (9-23)
[2016-11-18 16:33] LABS: TROP-I INTERPRETATION NEGATIVE; TROPONIN-I 0.02 ng/mL (0.0-0.30)
[2016-11-18] MEDS ORDERED: COUMADIN3 MG PO (19:29)
[2016-11-18] MEDS ORDERED: TRESIBA FL100 UNIT/1 SC (19:31)
[2016-11-18 21:06] LABS: INTER. NORMALIZED RATIO 1.6; PROTHROMBIN TIME 17.6 SEC (10.2-12.9)
[2016-11-18 21:09] LABS: PTT 33.5 SEC (25-37)
[2016-11-18 21:34] VITALS: BP 132/63
[2016-11-18 22:24] LABS: POINT-OF-CARE METER ID UU13113725
[2016-11-18 23:35] LABS: TOTAL BILIRUBIN 0.6 mg/dL (0.0-1.0)
[2016-11-18 23:36] LABS: ALKALINE PHOSPHATASE 129 IU/L (3-129)
[2016-11-18 23:39] LABS: DIRECT BILIRUBIN 0.4 mg/dL (0.0-0.3)
[2016-11-18 23:45] LABS: TROP-I INTERPRETATION NEGATIVE; TROPONIN-I 0.01 ng/mL (0.0-0.30)
[2016-11-19 04:33] LABS: ADD MIUA? YES; BILIRUBIN NEGATIVE; BLOOD MODERATE; COLOR YELLOW ((YELLOW)); GLUCOSE (STRIP) NEGATIVE; KETONES NEGATIVE; LEUKOCYTES LARGE; NITRITE POSITIVE; PROTEIN (STRIP) 30; SPECIFIC GRAVITY 1.013 (1.000-1.030); UROBILINOGEN 0.2 MG/DL (0.2-1.0)
[2016-11-19 06:32] LABS: UCUL ADDED? YES
[2016-11-19 06:34] LABS: WHITE BLOOD CELLS TNTC /HPF (0-5)
[2016-11-19 06:55] LABS: HEMATOCRIT 27.7 % (38.0-50.0); MCH 28.9 PG (29.0-34.0); PLATELET COUNT 114 K/uL (156-360); RBC DIS.WIDTH-CV 15.4 % (11.8-14.6); RBC DIS.WIDTH-SD 51.9 % (39-53); RED BLOOD COUNT 2.98 M/uL (4.00-5.50); WHITE BLOOD COUNT 4.4 K/uL (4.1-10.2)
[2016-11-19 07:13] LABS: INTER. NORMALIZED RATIO 1.6; PROTHROMBIN TIME 17.6 SEC (10.2-12.9)
[2016-11-19 07:19] LABS: TROP-I INTERPRETATION NEGATIVE; TROPONIN-I 0.03 ng/mL (0.0-0.30)
[2016-11-19 07:20] LABS: ANION GAP 7 MEQ/L (2-14); CHLORIDE 112 MEQ/L (99-109); GFR ESTIMATE (CALCULATED) 33 mL/min/; POTASSIUM 4.4 MEQ/L (3.7-5.4); SAMPLE HEMOLYSIS CHECK 0; SAMPLE ICTERIC CHECK 0; SAMPLE LIPEMIA CHECK 0; SODIUM 142 MEQ/L (136-147); UREA NITROGEN (BUN) 47 mg/dL (9-23)
[2016-11-19 07:32] LABS: GLUCOSE 56 mg/dL (70-99)
[2016-11-19 07:44] LABS: POINT-OF-CARE METER ID UU13113725
[2016-11-19 08:08] LABS: POINT-OF-CARE METER ID UU13113725
[2016-11-19 08:11] VITALS: BP 111/53
[2016-11-19 11:35] LABS: POINT-OF-CARE METER ID UU13113725
[2016-11-19 11:45] VITALS: BP 115/54
[2016-11-19 15:51] VITALS: BP 152/71
[2016-11-19 16:23] LABS: POINT-OF-CARE METER ID UU13113725
[2016-11-19 18:55] VITALS: BP 121/55
[2016-11-19 21:03] LABS: POINT-OF-CARE METER ID UU13113725
[2016-11-19 22:01] VITALS: BP 131/60
[2016-11-19 22:38] VITALS: BP 131/59
[2016-11-20 03:00] VITALS: BP 116/56
[2016-11-20 06:50] VITALS: BP 110/53
[2016-11-20 06:52] LABS: HEMATOCRIT 29.7 % (38.0-50.0); MCV 93.7 FL (86-99); MEAN PLAT.VOLUME 10.6 uM^3 (9.0-12.4); PLATELET COUNT 108 K/uL (156-360); RBC DIS.WIDTH-CV 15.5 % (11.8-14.6); RBC DIS.WIDTH-SD 53.4 % (39-53); RED BLOOD COUNT 3.17 M/uL (4.00-5.50)
[2016-11-20 07:48] LABS: ANION GAP 8 MEQ/L (2-14); CHLORIDE 110 MEQ/L (99-109); GFR ESTIMATE (CALCULATED) 31 mL/min/; GLUCOSE 66 mg/dL (70-99); POTASSIUM 4.3 MEQ/L (3.7-5.4); SAMPLE HEMOLYSIS CHECK 0; SAMPLE ICTERIC CHECK 0; SAMPLE LIPEMIA CHECK 0; SODIUM 140 MEQ/L (136-147); UREA NITROGEN (BUN) 44 mg/dL (9-23)
[2016-11-20 07:51] LABS: INTER. NORMALIZED RATIO 1.7; PROTHROMBIN TIME 19.4 SEC (10.2-12.9)
[2016-11-20 11:10] VITALS: BP 114/58
[2016-11-20 11:56] LABS: POINT-OF-CARE METER ID UU13113725
[2016-11-20 15:02] VITALS: BP 100/51
[2016-11-20 16:21] LABS: POINT-OF-CARE METER ID UU13113725
[2016-11-20 19:58] VITALS: BP 110/54
[2016-11-20 21:06] VITALS: BP 113/60
[2016-11-20 22:11] LABS: POINT-OF-CARE METER ID UU13113725
[2016-11-21 05:58] LABS: POINT-OF-CARE METER ID UU13113725
[2016-11-21 06:28] LABS: EOSINOPHIL (%) 0 % (0-5); HEMATOCRIT 27.6 % (38.0-50.0); IMMATURE GRANULOCYTE (%) 0.5 % (0.0-0.7); INSTRUMENT ABS NEUTROPHIL CT 2.4 K/uL; MCH 29.5 PG (29.0-34.0); MCHC 31.9 G/DL (30.0-36.0); MCV 92.6 FL (86-99); MEAN PLAT.VOLUME 10.6 uM^3 (9.0-12.4); MONOCYTE (%) 10.6 % (3-12); MONOCYTE COUNT 0.4 K/uL (0-0.8); NEUTROPHIL (%) 62.8 % (45-76); NEUTROPHIL COUNT 2.4 K/uL (1.8-6.4); PLATELET COUNT 108 K/uL (156-360); RBC DIS.WIDTH-CV 15.3 % (11.8-14.6); RBC DIS.WIDTH-SD 51.8 % (39-53); RED BLOOD COUNT 2.98 M/uL (4.00-5.50); WHITE BLOOD COUNT 3.8 K/uL (4.1-10.2)
[2016-11-21 07:00] VITALS: BP 106/54
[2016-11-21 07:02] LABS: ALKALINE PHOSPHATASE 90 IU/L (3-129); ANION GAP 7 MEQ/L (2-14); CHLORIDE 109 MEQ/L (99-109); GFR ESTIMATE (CALCULATED) 28 mL/min/; POTASSIUM 4.7 MEQ/L (3.7-5.4); SAMPLE HEMOLYSIS CHECK 0; SAMPLE ICTERIC CHECK 0; SAMPLE LIPEMIA CHECK 0; SODIUM 137 MEQ/L (136-147); TOTAL BILIRUBIN 0.7 MG/DL (0.0-1.0); UREA NITROGEN (BUN) 47 mg/dL (9-23)
[2016-11-21 07:03] LABS: GLUCOSE 86 mg/dL (70-99)
[2016-11-21 11:00] VITALS: BP 110/56
[2016-11-21 15:00] VITALS: BP 128/58
[2016-11-21 21:49] VITALS: BP 124/60
[2016-11-21 23:12] VITALS: BP 110/53
[2016-11-22 05:47] VITALS: BP 110/58
[2016-11-22 07:08] LABS: POINT-OF-CARE METER ID UU13113725
[2016-11-22 07:32] VITALS: BP 110/55
[2016-11-22 08:03] LABS: EOSINOPHIL (%) 0 % (0-5); HEMATOCRIT 27.5 % (38.0-50.0); IMMATURE GRANULOCYTE (%) 0.5 % (0.0-0.7); INSTRUMENT ABS NEUTROPHIL CT 2.5 K/uL; INTER. NORMALIZED RATIO 2.1; LYMPHOCYTE COUNT 0.9 K/uL (1.0-2.8); MCH 28.6 PG (29.0-34.0); MCHC 31.3 G/DL (30.0-36.0); MCV 91.4 FL (86-99); MONOCYTE (%) 10.3 % (3-12); MONOCYTE COUNT 0.4 K/uL (0-0.8); NEUTROPHIL (%) 65.9 % (45-76); NEUTROPHIL COUNT 2.5 K/uL (1.8-6.4); PLATELET COUNT 96 K/uL (156-360); PROTHROMBIN TIME 23.2 SEC (10.2-12.9); RBC DIS.WIDTH-SD 50.7 % (39-53); RED BLOOD COUNT 3.01 M/uL (4.00-5.50); WHITE BLOOD COUNT 3.8 K/uL (4.1-10.2)
[2016-11-22 08:28] LABS: ANION GAP 9 MEQ/L (2-14); C-REACTIVE PROTEIN 23.8 MG/L (0-10); CHLORIDE 109 MEQ/L (99-109); GFR ESTIMATE (CALCULATED) 27 mL/min/; GLUCOSE 91 mg/dL (70-99); POTASSIUM 4.6 MEQ/L (3.7-5.4); SAMPLE HEMOLYSIS CHECK 0; SAMPLE ICTERIC CHECK 0; SAMPLE LIPEMIA CHECK 0; SODIUM 139 MEQ/L (136-147); UREA NITROGEN (BUN) 54 mg/dL (9-23)
[2016-11-22 11:30] VITALS: BP 118/56
[2016-11-22 11:30] LABS: POINT-OF-CARE METER ID UU13113725
[2016-11-22 16:35] LABS: POINT-OF-CARE METER ID UU13113725
[2016-11-22 17:13] VITALS: BP 107/53
== END 2016-11-22 18:36 | disposition home health service (06) | DRG 683 ==
LOC: EME 15:09 → EDOF 19:17 → 5EAST 19:17 → ENRESERV 19:19 → 5EAST 21:14
PROVIDERS: Emergency Medicine; Hospitalist; Internal Medicine Nephrology
DX: N17.0 Acute kidney failure with tubular necrosis (principal); I13.0 Hypertensive heart and chronic kidney disease with heart failure and stage 1 through stage 4 chronic kidney disease, or unspecified chronic kidney disease; I50.22 Chronic systolic (congestive) heart failure; Z68.41 Body mass index [BMI] 40.0-44.9, adult; L03.115 Cellulitis of right lower limb; L97.829 Non-pressure chronic ulcer of other part of left lower leg with unspecified severity; L97.819 Non-pressure chronic ulcer of other part of right lower leg with unspecified severity; R18.8 Other ascites; J98.11 Atelectasis; J90 Pleural effusion, not elsewhere classified; L03.116 Cellulitis of left lower limb; N18.3 Chronic kidney disease, stage 3 (moderate); I27.2 Other secondary pulmonary hypertension; G47.33 Obstructive sleep apnea (adult) (pediatric); I48.2 Chronic atrial fibrillation; E66.01 Morbid (severe) obesity due to excess calories; E11.22 Type 2 diabetes mellitus with diabetic chronic kidney disease; D63.1 Anemia in chronic kidney disease; D69.6 Thrombocytopenia, unspecified; E03.9 Hypothyroidism, unspecified; E11.65 Type 2 diabetes mellitus with hyperglycemia; J44.9 Chronic obstructive pulmonary disease, unspecified; Z16.12 Extended spectrum beta lactamase (ESBL) resistance; N28.1 Cyst of kidney, acquired; L89.322 Pressure ulcer of left buttock, stage 2; Z16.11 Resistance to penicillins; Z16.19 Resistance to other specified beta lactam antibiotics; I87.2 Venous insufficiency (chronic) (peripheral); I87.8 Other specified disorders of veins; E11.622 Type 2 diabetes mellitus with other skin ulcer; K74.69 Other cirrhosis of liver; K21.9 Gastro-esophageal reflux disease without esophagitis; I89.0 Lymphedema, not elsewhere classified; Z79.4 Long term (current) use of insulin; Z79.01 Long term (current) use of anticoagulants; Z98.41 Cataract extraction status, right eye; Z98.42 Cataract extraction status, left eye; Z95.0 Presence of cardiac pacemaker; Z87.891 Personal history of nicotine dependence; Z82.49 Family history of ischemic heart disease and other diseases of the circulatory system
CPT/HCPCS: 70450; 71010; 76770; 80048; 80053; 80076; 80162; 81003; 82140; 82436; 82948; 84133; 84300; 84484; 85025; 85027; 85610; 85730; 86140; 87040; 87077; 87086; 87186; 93005; 94640; 94640 76; 94660; 97530 GO; 99281; 99285; A6260; J0692; J1815; J1940; J2185; J3370; J7040; J7050; P9047

== ENCOUNTER 2016-12-14 12:38 | Inpatient (IN) | payer OTHER ==
[~2016-12-14] VITALS: Ht 177.8 cm; Wt 131.9 kg
[2016-12-14 13:20] LABS: MCH 29.4 PG (29.0-34.0); MCHC 30.9 G/DL (30.0-36.0); MEAN PLAT.VOLUME 10.8 uM^3 (9.0-12.4); PLATELET COUNT 85 K/uL (156-360); RBC DIS.WIDTH-SD 55.7 % (39-53); RED BLOOD COUNT 3.37 M/uL (4.00-5.50); WHITE BLOOD COUNT 10.6 K/uL (4.1-10.2)
[2016-12-14 13:25] LABS: INTER. NORMALIZED RATIO 1.6; PROTHROMBIN TIME 17.4 SEC (10.2-12.9)
[2016-12-14 13:28] LABS: CHLORIDE 121 mEq/L (99-109); PTT 23.8 SEC (25-37); SODIUM 143 mEq/L (136-147)
[2016-12-14 13:30] LABS: GLUCOSE 112 mg/dL (70-99)
[2016-12-14 13:31] LABS: ANION GAP 8 MEQ/L (2-14)
[2016-12-14 13:34] LABS: GFR ESTIMATE (CALCULATED) 23 mL/min/; UREA NITROGEN (BUN) 65 mg/dL (9-23)
[2016-12-14 13:39] LABS: POTASSIUM 6.3 mEq/L (3.7-5.4)
[2016-12-14 13:40] LABS: TROP-I INTERPRETATION NEGATIVE; TROPONIN-I 0.05 ng/mL (0.0-0.30)
[2016-12-14 14:02] LABS: ABS NEUTROPHIL COUNT 9.9; ANISOCYTOSIS 1+; BAND NEUTROPHILS 14.9 % (0-8.0); EOSINOPHIL ABS CT 0; INSTRUMENT ABS NEUTROPHIL CT 9.4 K/uL; LYMPHOCYTES 4.4 % (15.0-45.0); MACROCYTES 1+; METAMYELOCYTES 0.9 %; PLAT.SUFFICIENCY DECREASED; SEG.NEUTROPHILS 78.9 % (46.0-76.0)
[2016-12-14 15:20] LABS: ADD MIUA? YES; BILIRUBIN NEGATIVE; BLOOD LARGE; COLOR AMBER ((YELLOW)); GLUCOSE (STRIP) NEGATIVE; KETONES NEGATIVE; LEUKOCYTES LARGE; NITRITE NEGATIVE; PROTEIN (STRIP) 100; SPECIFIC GRAVITY 1.017 (1.000-1.030)
[2016-12-14 15:26] LABS: BACTERIA RARE /HPF; EPITHELIAL CELLS NONE SEEN /HPF; MUCUS NONE SEEN /LPF; RED BLOOD CELLS 30-40 /HPF (0-5); UCUL ADDED? YES; WHITE BLOOD CELLS TNTC /HPF (0-5); WHITE BLOOD CELLS CLUMP MANY /HPF (0-5)
[2016-12-14 18:07] LABS: DIGOXIN < 0.3 ng/mL (0.8-2.0)
[2016-12-14 18:23] LABS: POINT-OF-CARE METER ID UU14100415; POINT-OF-CARE USER ID STWBNM
[2016-12-14 19:20] VITALS: BP 118/69
[2016-12-14 20:18] LABS: BASE EXCESS -8.5 mEq/L (-3 to +3); BICARBONATE 15.1 mEq/L (22-26); COMMENTS - BLOOD GASES C+A+; DEVICE NC; METHEMOGLOBIN 1.5 % (0-1.5); O2 FLOW 2 L/MIN; PCO2 25 mm Hg (35-45); PO2 102 mm Hg (80-100); SITE RR; pH 7.39 (7.35-7.45)
[2016-12-14 22:04] LABS: METH RESISTANT S AUREUS PCR POSITIVE (NEGATIVE); PROBE CHECK PASS
[2016-12-14 23:10] LABS: CHLORIDE 117 mEq/L (99-109); POTASSIUM 5.5 mEq/L (3.7-5.4); SODIUM 141 mEq/L (136-147)
[2016-12-14 23:13] LABS: GLUCOSE 136 mg/dL (70-99)
[2016-12-14 23:14] LABS: ANION GAP 11 MEQ/L (2-14); TOTAL BILIRUBIN 1.1 mg/dL (0.0-1.0)
[2016-12-14 23:16] LABS: ALKALINE PHOSPHATASE 88 IU/L (3-129); GFR ESTIMATE (CALCULATED) 22 mL/min/
[2016-12-14 23:17] LABS: UREA NITROGEN (BUN) 67 mg/dL (9-23)
[2016-12-14 23:55] VITALS: BP 121/50
[2016-12-15 03:09] LABS: INTER. NORMALIZED RATIO 1.9; PROTHROMBIN TIME 21.6 SEC (10.2-12.9)
[2016-12-15 04:00] VITALS: BP 119/45
[2016-12-15 08:00] VITALS: BP 121/56
[2016-12-15 09:06] LABS: HEMATOCRIT 33.4 % (38.0-50.0); MCH 28.9 PG (29.0-34.0); MCHC 29.9 G/DL (30.0-36.0); MCV 96.5 FL (86-99); MEAN PLAT.VOLUME 11.1 uM^3 (9.0-12.4); PLATELET COUNT 94 K/uL (156-360); RBC DIS.WIDTH-CV 16.9 % (11.8-14.6); RBC DIS.WIDTH-SD 59.7 % (39-53); RED BLOOD COUNT 3.46 M/uL (4.00-5.50); WHITE BLOOD COUNT 10.2 K/uL (4.1-10.2)
[2016-12-15 09:33] LABS: ALKALINE PHOSPHATASE 75 IU/L (3-129); ANION GAP 7 MEQ/L (2-14); CHLORIDE 113 MEQ/L (99-109); GFR ESTIMATE (CALCULATED) 19 mL/min/; GLUCOSE 156 mg/dL (70-99); POTASSIUM 5.4 MEQ/L (3.7-5.4); SAMPLE HEMOLYSIS CHECK 0; SAMPLE ICTERIC CHECK 0; SAMPLE LIPEMIA CHECK 0; SODIUM 141 MEQ/L (136-147); UREA NITROGEN (BUN) 71 mg/dL (9-23)
[2016-12-15 09:43] LABS: ABS NEUTROPHIL COUNT 9.5; ANISOCYTOSIS 1+; BASOPHILS 0.9 %; EOSINOPHIL ABS CT 0; INSTRUMENT ABS NEUTROPHIL CT 8.8 K/uL; LYMPHOCYTES 3.4 % (15.0-45.0); PLAT.SUFFICIENCY DECREASED
[2016-12-15 09:49] LABS: BAND NEUTROPHILS 40.5 % (0-8.0); SEG.NEUTROPHILS 52.6 % (46.0-76.0)
[2016-12-15 12:10] VITALS: BP 118/58
[2016-12-15 19:58] VITALS: BP 115/51
[2016-12-15 23:57] VITALS: BP 109/48
[2016-12-16] VITALS (7 sets, daily range): BP systolic 102–123; BP diastolic 50–70
[2016-12-16 07:30] LABS: UR CREATININE CONCENTRATION 229.5 MG/DL
[2016-12-16 08:43] LABS: HEMATOCRIT 30.9 % (38.0-50.0); MCH 29.9 PG (29.0-34.0); MCHC 31.4 G/DL (30.0-36.0); MCV 95.4 FL (86-99); MEAN PLAT.VOLUME 11.4 uM^3 (9.0-12.4); PLATELET COUNT 85 K/uL (156-360); RBC DIS.WIDTH-CV 16.8 % (11.8-14.6); RBC DIS.WIDTH-SD 59.5 % (39-53); RED BLOOD COUNT 3.24 M/uL (4.00-5.50); WHITE BLOOD COUNT 7.8 K/uL (4.1-10.2)
[2016-12-16 09:10] LABS: ANION GAP 10 MEQ/L (2-14); CHLORIDE 113 MEQ/L (99-109); GFR ESTIMATE (CALCULATED) 17 mL/min/; GLUCOSE 132 mg/dL (70-99); IRON 17 MCG/DL (35-150); POTASSIUM 5.1 MEQ/L (3.7-5.4); SAMPLE HEMOLYSIS CHECK 0; SAMPLE ICTERIC CHECK 0; SAMPLE LIPEMIA CHECK 0; SODIUM 140 MEQ/L (136-147); UREA NITROGEN (BUN) 82 mg/dL (9-23)
[2016-12-16 09:30] LABS: EOSINOPHIL (%) 0 % (0-5); IMMATURE GRANULOCYTE (%) 1.4 % (0.0-0.7); IMMATURE GRANULOCYTE COUNT 0.1 K/uL; INSTRUMENT ABS NEUTROPHIL CT 6.4 K/uL; LYMPHOCYTE COUNT 0.8 K/uL (1.0-2.8); MONOCYTE (%) 6.3 % (3-12); MONOCYTE COUNT 0.5 K/uL (0-0.8); NEUTROPHIL (%) 82.5 % (45-76); NEUTROPHIL COUNT 6.4 K/uL (1.8-6.4); PLAT.SUFFICIENCY DECREASED
[2016-12-16 10:04] LABS: INTER. NORMALIZED RATIO 1.7; PROTHROMBIN TIME 18.6 SEC (10.2-12.9)
[2016-12-17 04:20] VITALS: BP 110/84
[2016-12-17 05:13] LABS: HEMATOCRIT 30.6 % (38.0-50.0); MCH 28.8 PG (29.0-34.0); MCHC 30.4 G/DL (30.0-36.0); MCV 94.7 FL (86-99); MEAN PLAT.VOLUME 11.7 uM^3 (9.0-12.4); PLATELET COUNT 87 K/uL (156-360); RBC DIS.WIDTH-CV 16.4 % (11.8-14.6); RBC DIS.WIDTH-SD 57.5 % (39-53); RED BLOOD COUNT 3.23 M/uL (4.00-5.50); WHITE BLOOD COUNT 6.2 K/uL (4.1-10.2)
[2016-12-17 05:34] LABS: INTER. NORMALIZED RATIO 1.7; PROTHROMBIN TIME 19.1 SEC (10.2-12.9)
[2016-12-17 05:36] LABS: ANION GAP 12 MEQ/L (2-14); CHLORIDE 112 MEQ/L (99-109); GFR ESTIMATE (CALCULATED) 17 mL/min/; GLUCOSE 162 mg/dL (70-99); POTASSIUM 5.1 MEQ/L (3.7-5.4); SAMPLE HEMOLYSIS CHECK 0; SAMPLE ICTERIC CHECK 0; SAMPLE LIPEMIA CHECK 0; SODIUM 140 MEQ/L (136-147); UREA NITROGEN (BUN) 88 mg/dL (9-23)
[2016-12-17 05:51] LABS: EOSINOPHIL (%) 0 % (0-5); HEMATOLOGY COMMENT 1 SN; IMMATURE GRANULOCYTE (%) 0.3 % (0.0-0.7); LYMPHOCYTE COUNT 0.7 K/uL (1.0-2.8); MONOCYTE (%) 7.3 % (3-12); MONOCYTE COUNT 0.5 K/uL (0-0.8); NEUTROPHIL (%) 80.9 % (45-76)
[2016-12-17 08:42] VITALS: BP 129/56
[2016-12-17 11:27] VITALS: BP 98/56
[2016-12-17 16:09] VITALS: BP 112/59
[2016-12-17 19:30] VITALS: BP 98/58
[2016-12-18 04:03] VITALS: BP 115/70
[2016-12-18 05:10] LABS: EOSINOPHIL (%) 0 % (0-5); HEMATOCRIT 30.7 % (38.0-50.0); IMMATURE GRANULOCYTE (%) 0.9 % (0.0-0.7); IMMATURE GRANULOCYTE COUNT 0.1 K/uL; INSTRUMENT ABS NEUTROPHIL CT 4.6 K/uL; LYMPHOCYTE COUNT 0.8 K/uL (1.0-2.8); MCH 28.5 PG (29.0-34.0); MCHC 30.3 G/DL (30.0-36.0); MCV 94.2 FL (86-99); MEAN PLAT.VOLUME 11.4 uM^3 (9.0-12.4); MONOCYTE (%) 8.3 % (3-12); MONOCYTE COUNT 0.5 K/uL (0-0.8); NEUTROPHIL (%) 77.6 % (45-76); NEUTROPHIL COUNT 4.6 K/uL (1.8-6.4); PLATELET COUNT 88 K/uL (156-360); RBC DIS.WIDTH-CV 16.1 % (11.8-14.6); RBC DIS.WIDTH-SD 56.1 % (39-53); RED BLOOD COUNT 3.26 M/uL (4.00-5.50); WHITE BLOOD COUNT 5.9 K/uL (4.1-10.2)
[2016-12-18 05:28] LABS: INTER. NORMALIZED RATIO 1.9; PROTHROMBIN TIME 21.6 SEC (10.2-12.9)
[2016-12-18 05:43] LABS: ANION GAP 13 MEQ/L (2-14); CHLORIDE 110 MEQ/L (99-109); GFR ESTIMATE (CALCULATED) 14 mL/min/; GLUCOSE 170 mg/dL (70-99); POTASSIUM 5.4 MEQ/L (3.7-5.4); SAMPLE HEMOLYSIS CHECK 0; SAMPLE ICTERIC CHECK 0; SAMPLE LIPEMIA CHECK 0; SODIUM 139 MEQ/L (136-147); UREA NITROGEN (BUN) 93 mg/dL (9-23)
[2016-12-18 07:30] VITALS: BP 128/85
[2016-12-18 11:50] VITALS: BP 125/70
[2016-12-18 16:05] VITALS: BP 124/69
[2016-12-18 19:10] VITALS: BP 125/75
[2016-12-19 03:38] VITALS: BP 112/65
[2016-12-19 05:11] LABS: EOSINOPHIL (%) 2.5 % (0-5); EOSINOPHIL COUNT 0.1 K/uL (0-0.3); HEMATOCRIT 28.3 % (38.0-50.0); IMMATURE GRANULOCYTE COUNT 0.2 K/uL; INSTRUMENT ABS NEUTROPHIL CT 3.7 K/uL; LYMPHOCYTE COUNT 0.9 K/uL (1.0-2.8); MCH 30.3 PG (29.0-34.0); MCHC 31.8 G/DL (30.0-36.0); MCV 95.3 FL (86-99); MEAN PLAT.VOLUME 12.1 uM^3 (9.0-12.4); MONOCYTE (%) 8.1 % (3-12); MONOCYTE COUNT 0.4 K/uL (0-0.8); NEUTROPHIL (%) 69.5 % (45-76); NEUTROPHIL COUNT 3.7 K/uL (1.8-6.4); PLATELET COUNT 87 K/uL (156-360); RBC DIS.WIDTH-SD 55.1 % (39-53); RED BLOOD COUNT 2.97 M/uL (4.00-5.50); WHITE BLOOD COUNT 5.3 K/uL (4.1-10.2)
[2016-12-19 05:27] LABS: INTER. NORMALIZED RATIO 2.3; PROTHROMBIN TIME 25.6 SEC (10.2-12.9)
[2016-12-19 05:51] LABS: ANION GAP 12 MEQ/L (2-14); CHLORIDE 110 MEQ/L (99-109); GFR ESTIMATE (CALCULATED) 13 mL/min/; GLUCOSE 130 mg/dL (70-99); POTASSIUM 5.4 MEQ/L (3.7-5.4); SAMPLE HEMOLYSIS CHECK 0; SAMPLE ICTERIC CHECK 0; SAMPLE LIPEMIA CHECK 0; SODIUM 138 MEQ/L (136-147); UREA NITROGEN (BUN) 105 mg/dL (9-23)
[2016-12-19 07:30] VITALS: BP 122/69
[2016-12-19 12:00] VITALS: BP 119/65
[2016-12-19 12:43] LABS: ANTI-HEPATITIS B CORE (TOTAL) Nonreactive; HBCT INDEX 0.08
[2016-12-19 12:44] LABS: HBSG INDEX 0.18; HPCA INDEX 0.21
[2016-12-19 12:45] LABS: AHBS INDEX 0.35; HEPATITIS B SURFACE ANTIBODY Nonreactive
[2016-12-19 13:23] LABS: ANTI-HEPATITIS A VIRUS (IGM) Nonreactive; HAV INDEX 0.11
[2016-12-19 13:24] LABS: ANTI-HEPATITIS B CORE (IGM) Nonreactive; HBC IgM INDEX 0.05
[2016-12-19 19:48] VITALS: BP 114/76
[2016-12-20] VITALS (7 sets, daily range): BP systolic 108–117; BP diastolic 56–65
[2016-12-20 06:15] LABS: INTER. NORMALIZED RATIO 2.4; PROTHROMBIN TIME 27.9 SEC (10.2-12.9)
[2016-12-20 06:20] LABS: EOSINOPHIL (%) 2.4 % (0-5); EOSINOPHIL COUNT 0.1 K/uL (0-0.3); HEMATOCRIT 29.5 % (38.0-50.0); IMMATURE GRANULOCYTE (%) 4.7 % (0.0-0.7); IMMATURE GRANULOCYTE COUNT 0.2 K/uL; INSTRUMENT ABS NEUTROPHIL CT 3.1 K/uL; LYMPHOCYTE COUNT 0.9 K/uL (1.0-2.8); MCH 28.7 PG (29.0-34.0); MCHC 30.2 G/DL (30.0-36.0); MCV 95.2 FL (86-99); MEAN PLAT.VOLUME 11.5 uM^3 (9.0-12.4); MONOCYTE (%) 11.2 % (3-12); MONOCYTE COUNT 0.6 K/uL (0-0.8); NEUTROPHIL (%) 62.8 % (45-76); NEUTROPHIL COUNT 3.1 K/uL (1.8-6.4); PLATELET COUNT 92 K/uL (156-360); RBC DIS.WIDTH-CV 15.7 % (11.8-14.6); RBC DIS.WIDTH-SD 54.6 % (39-53); WHITE BLOOD COUNT 4.9 K/uL (4.1-10.2)
[2016-12-20 06:47] LABS: ANION GAP 12 MEQ/L (2-14); CHLORIDE 104 MEQ/L (99-109); GFR ESTIMATE (CALCULATED) 16 mL/min/; GLUCOSE 132 mg/dL (70-99); POTASSIUM 5.1 MEQ/L (3.7-5.4); SAMPLE HEMOLYSIS CHECK 0; SAMPLE ICTERIC CHECK 0; SAMPLE LIPEMIA CHECK 0; SODIUM 136 MEQ/L (136-147); UREA NITROGEN (BUN) 85 mg/dL (9-23)
[2016-12-20 11:22] LABS: POINT-OF-CARE METER ID UU14174216
[2016-12-20 17:10] LABS: POINT-OF-CARE METER ID UU14174216
[2016-12-20 21:20] LABS: POINT-OF-CARE METER ID UU14174216
[2016-12-21 05:44] VITALS: BP 106/57
[2016-12-21 06:02] LABS: EOSINOPHIL (%) 3.8 % (0-5); EOSINOPHIL COUNT 0.2 K/uL (0-0.3); HEMATOCRIT 28.3 % (38.0-50.0); IMMATURE GRANULOCYTE (%) 4.2 % (0.0-0.7); IMMATURE GRANULOCYTE COUNT 0.2 K/uL; INSTRUMENT ABS NEUTROPHIL CT 2.9 K/uL; LYMPHOCYTE COUNT 0.9 K/uL (1.0-2.8); MCH 29.3 PG (29.0-34.0); MCHC 31.4 G/DL (30.0-36.0); MCV 93.1 FL (86-99); MEAN PLAT.VOLUME 11.1 uM^3 (9.0-12.4); MONOCYTE (%) 10.5 % (3-12); MONOCYTE COUNT 0.5 K/uL (0-0.8); NEUTROPHIL (%) 61.4 % (45-76); NEUTROPHIL COUNT 2.9 K/uL (1.8-6.4); PLATELET COUNT 92 K/uL (156-360); RBC DIS.WIDTH-CV 15.5 % (11.8-14.6); RED BLOOD COUNT 3.04 M/uL (4.00-5.50); WHITE BLOOD COUNT 4.8 K/uL (4.1-10.2)
[2016-12-21 06:26] LABS: INTER. NORMALIZED RATIO 2.3; PROTHROMBIN TIME 26.6 SEC (10.2-12.9)
[2016-12-21 06:27] LABS: ANION GAP 11 MEQ/L (2-14); CHLORIDE 103 MEQ/L (99-109); GFR ESTIMATE (CALCULATED) 18 mL/min/; GLUCOSE 136 mg/dL (70-99); POTASSIUM 4.6 MEQ/L (3.7-5.4); SAMPLE HEMOLYSIS CHECK 0; SAMPLE ICTERIC CHECK 0; SAMPLE LIPEMIA CHECK 0; SODIUM 137 MEQ/L (136-147); UREA NITROGEN (BUN) 70 mg/dL (9-23)
[2016-12-21 07:16] VITALS: BP 113/62
[2016-12-21 13:41] LABS: POINT-OF-CARE METER ID UU14174216
[2016-12-21 15:32] VITALS: BP 111/65
[2016-12-21 16:34] LABS: POINT-OF-CARE METER ID UU14174216
[2016-12-21 20:00] VITALS: BP 117/66
[2016-12-21 22:00] VITALS: BP 106/52
[2016-12-22 04:00] VITALS: BP 101/42
[2016-12-22 05:50] LABS: EOSINOPHIL (%) 1.9 % (0-5); EOSINOPHIL COUNT 0.1 K/uL (0-0.3); HEMATOCRIT 29.2 % (38.0-50.0); IMMATURE GRANULOCYTE (%) 2.6 % (0.0-0.7); IMMATURE GRANULOCYTE COUNT 0.2 K/uL; INSTRUMENT ABS NEUTROPHIL CT 3.8 K/uL; LYMPHOCYTE COUNT 1.1 K/uL (1.0-2.8); MCHC 31.2 G/DL (30.0-36.0); MEAN PLAT.VOLUME 11.5 uM^3 (9.0-12.4); MONOCYTE (%) 9.5 % (3-12); MONOCYTE COUNT 0.5 K/uL (0-0.8); NEUTROPHIL COUNT 3.8 K/uL (1.8-6.4); PLATELET COUNT 100 K/uL (156-360); RBC DIS.WIDTH-CV 15.9 % (11.8-14.6); RBC DIS.WIDTH-SD 52.2 % (39-53); RED BLOOD COUNT 3.14 M/uL (4.00-5.50); WHITE BLOOD COUNT 5.7 K/uL (4.1-10.2)
[2016-12-22 06:12] LABS: ANION GAP 12 MEQ/L (2-14); CHLORIDE 101 MEQ/L (99-109); GFR ESTIMATE (CALCULATED) 23 mL/min/; GLUCOSE 134 mg/dL (70-99); POTASSIUM 4.2 MEQ/L (3.7-5.4); SAMPLE HEMOLYSIS CHECK 0; SAMPLE ICTERIC CHECK 0; SAMPLE LIPEMIA CHECK 0; SODIUM 139 MEQ/L (136-147); UREA NITROGEN (BUN) 51 mg/dL (9-23)
[2016-12-22 06:16] LABS: INTER. NORMALIZED RATIO 2.2; PROTHROMBIN TIME 25.2 SEC (10.2-12.9)
[2016-12-22 07:30] VITALS: BP 109/68
[2016-12-22 07:40] LABS: POINT-OF-CARE METER ID UU13113781
[2016-12-22 11:43] LABS: POINT-OF-CARE METER ID UU13113781
[2016-12-22 17:21] LABS: POINT-OF-CARE METER ID UU13113781
[2016-12-22 20:00] VITALS: BP 101/52
[2016-12-22 21:20] LABS: POINT-OF-CARE METER ID UU13113781
[2016-12-22 23:55] VITALS: BP 118/58
[2016-12-23 04:00] VITALS: BP 118/65
[2016-12-23 04:50] LABS: INTER. NORMALIZED RATIO 2.3
[2016-12-23 07:22] VITALS: BP 114/65
[2016-12-23 07:50] LABS: POINT-OF-CARE METER ID UU13113698
[2016-12-23 11:32] LABS: POINT-OF-CARE METER ID UU13113698
[2016-12-23 12:07] VITALS: BP 114/63
[2016-12-23 13:20] VITALS: BP 130/65
[2016-12-23 16:42] LABS: POINT-OF-CARE METER ID UU13113698
[2016-12-23 20:00] VITALS: BP 114/61
[2016-12-23 21:23] LABS: POINT-OF-CARE METER ID UU13113698
[2016-12-24 00:38] VITALS: BP 119/67
[2016-12-24 05:06] VITALS: BP 153/80
[2016-12-24 07:26] LABS: HEMATOCRIT 30.5 % (38.0-50.0); MCH 29.4 PG (29.0-34.0); MCHC 31.1 G/DL (30.0-36.0); MCV 94.4 FL (86-99); MEAN PLAT.VOLUME 10.8 uM^3 (9.0-12.4); PLATELET COUNT 105 K/uL (156-360); RBC DIS.WIDTH-CV 15.9 % (11.8-14.6); RBC DIS.WIDTH-SD 53.8 % (39-53); RED BLOOD COUNT 3.23 M/uL (4.00-5.50); WHITE BLOOD COUNT 7.6 K/uL (4.1-10.2)
[2016-12-24 07:35] LABS: INTER. NORMALIZED RATIO 2.1; PROTHROMBIN TIME 23.9 SEC (10.2-12.9)
[2016-12-24 07:49] LABS: ANION GAP 13 MEQ/L (2-14); CHLORIDE 99 MEQ/L (99-109); GFR ESTIMATE (CALCULATED) 19 mL/min/; GLUCOSE 122 mg/dL (70-99); POTASSIUM 4.1 MEQ/L (3.7-5.4); SAMPLE HEMOLYSIS CHECK 0; SAMPLE ICTERIC CHECK 0; SAMPLE LIPEMIA CHECK 0; SODIUM 137 MEQ/L (136-147); UREA NITROGEN (BUN) 46 mg/dL (9-23)
[2016-12-24 08:22] VITALS: BP 132/68
[2016-12-24 11:15] VITALS: BP 134/64
[2016-12-24 16:20] LABS: POINT-OF-CARE METER ID UU13113781
[2016-12-24 21:38] LABS: POINT-OF-CARE METER ID UU13113781
[2016-12-25 00:22] VITALS: BP 118/53
[2016-12-25 04:15] VITALS: BP 130/81
[2016-12-25 06:06] LABS: POINT-OF-CARE METER ID UU13113725
[2016-12-25 08:04] LABS: EOSINOPHIL (%) 0 % (0-5); HEMATOCRIT 30.2 % (38.0-50.0); IMMATURE GRANULOCYTE (%) 0.8 % (0.0-0.7); IMMATURE GRANULOCYTE COUNT 0.1 K/uL; INSTRUMENT ABS NEUTROPHIL CT 5.1 K/uL; MCH 29.8 PG (29.0-34.0); MCHC 31.5 G/DL (30.0-36.0); MCV 94.7 FL (86-99); MEAN PLAT.VOLUME 10.8 uM^3 (9.0-12.4); MONOCYTE (%) 5.9 % (3-12); MONOCYTE COUNT 0.4 K/uL (0-0.8); NEUTROPHIL (%) 77.7 % (45-76); NEUTROPHIL COUNT 5.1 K/uL (1.8-6.4); PLATELET COUNT 108 K/uL (156-360); RBC DIS.WIDTH-CV 15.8 % (11.8-14.6); RBC DIS.WIDTH-SD 54.2 % (39-53); RED BLOOD COUNT 3.19 M/uL (4.00-5.50); WHITE BLOOD COUNT 6.6 K/uL (4.1-10.2)
[2016-12-25 08:13] LABS: ANION GAP 11 MEQ/L (2-14); CHLORIDE 100 MEQ/L (99-109); POTASSIUM 4.4 MEQ/L (3.7-5.4); SAMPLE HEMOLYSIS CHECK 0; SAMPLE ICTERIC CHECK 0; SAMPLE LIPEMIA CHECK 0; SODIUM 136 MEQ/L (136-147)
[2016-12-25 08:19] LABS: GFR ESTIMATE (CALCULATED) 16 mL/min/; GLUCOSE 180 mg/dL (70-99); UREA NITROGEN (BUN) 57 mg/dL (9-23)
[2016-12-25 09:32] LABS: PROTHROMBIN TIME 22.4 SEC (10.2-12.9)
[2016-12-25 12:25] VITALS: BP 112/53
[2016-12-25 12:31] LABS: POINT-OF-CARE METER ID UU13113725
[2016-12-25 15:34] LABS: POINT-OF-CARE METER ID UU13113725
[2016-12-25 17:20] VITALS: BP 118/70
[2016-12-25 19:33] VITALS: BP 122/77
[2016-12-25 22:06] LABS: POINT-OF-CARE METER ID UU13113725
[2016-12-25 23:28] VITALS: BP 126/61
[2016-12-26 05:00] VITALS: BP 104/50
[2016-12-26 05:42] LABS: POINT-OF-CARE METER ID UU13113725
[2016-12-26 07:22] VITALS: BP 116/57
[2016-12-26 08:41] LABS: EOSINOPHIL (%) 0 % (0-5); HEMATOCRIT 29.9 % (38.0-50.0); IMMATURE GRANULOCYTE (%) 0.6 % (0.0-0.7); INSTRUMENT ABS NEUTROPHIL CT 5.2 K/uL; LYMPHOCYTE COUNT 0.8 K/uL (1.0-2.8); MCH 30.4 PG (29.0-34.0); MCHC 31.8 G/DL (30.0-36.0); MCV 95.5 FL (86-99); MEAN PLAT.VOLUME 11.2 uM^3 (9.0-12.4); MONOCYTE (%) 6.7 % (3-12); MONOCYTE COUNT 0.4 K/uL (0-0.8); NEUTROPHIL (%) 79.4 % (45-76); NEUTROPHIL COUNT 5.2 K/uL (1.8-6.4); PLATELET COUNT 108 K/uL (156-360); RBC DIS.WIDTH-CV 15.9 % (11.8-14.6); RBC DIS.WIDTH-SD 53.6 % (39-53); RED BLOOD COUNT 3.13 M/uL (4.00-5.50); WHITE BLOOD COUNT 6.5 K/uL (4.1-10.2)
[2016-12-26 08:56] LABS: ANION GAP 9 MEQ/L (2-14); CHLORIDE 99 MEQ/L (99-109); GFR ESTIMATE (CALCULATED) 24 mL/min/; GLUCOSE 177 mg/dL (70-99); POTASSIUM 4.1 MEQ/L (3.7-5.4); SAMPLE HEMOLYSIS CHECK 0; SAMPLE ICTERIC CHECK 0; SAMPLE LIPEMIA CHECK 0; SODIUM 136 MEQ/L (136-147); UREA NITROGEN (BUN) 40 mg/dL (9-23)
[2016-12-26 09:44] LABS: PROTHROMBIN TIME 22.7 SEC (10.2-12.9)
[2016-12-26 10:15] VITALS: BP 114/56
[2016-12-26 13:28] LABS: POINT-OF-CARE METER ID UU13113725
[2016-12-26 16:23] LABS: POINT-OF-CARE METER ID UU13113725
[2016-12-26 16:33] VITALS: BP 118/69
[2016-12-26 21:54] LABS: POINT-OF-CARE METER ID UU13113725
[2016-12-27] VITALS (7 sets, daily range): BP systolic 109–161; BP diastolic 58–74
[2016-12-27 05:54] LABS: POINT-OF-CARE METER ID UU13113725
[2016-12-27 08:43] LABS: EOSINOPHIL (%) 0 % (0-5); HEMATOCRIT 29.5 % (38.0-50.0); IMMATURE GRANULOCYTE (%) 0.4 % (0.0-0.7); INSTRUMENT ABS NEUTROPHIL CT 5.5 K/uL; LYMPHOCYTE COUNT 0.9 K/uL (1.0-2.8); MCH 29.6 PG (29.0-34.0); MCHC 31.5 G/DL (30.0-36.0); MCV 93.9 FL (86-99); MEAN PLAT.VOLUME 11.3 uM^3 (9.0-12.4); MONOCYTE (%) 7.2 % (3-12); MONOCYTE COUNT 0.5 K/uL (0-0.8); NEUTROPHIL (%) 78.6 % (45-76); NEUTROPHIL COUNT 5.5 K/uL (1.8-6.4); PLATELET COUNT 112 K/uL (156-360); RBC DIS.WIDTH-CV 15.4 % (11.8-14.6); RBC DIS.WIDTH-SD 52.5 % (39-53); RED BLOOD COUNT 3.14 M/uL (4.00-5.50)
[2016-12-27 08:52] LABS: ANION GAP 8 MEQ/L (2-14); CHLORIDE 99 MEQ/L (99-109); POTASSIUM 4.2 MEQ/L (3.7-5.4); SAMPLE HEMOLYSIS CHECK 0; SAMPLE ICTERIC CHECK 0; SAMPLE LIPEMIA CHECK 0; SODIUM 134 MEQ/L (136-147)
[2016-12-27 08:58] LABS: GFR ESTIMATE (CALCULATED) 20 mL/min/; GLUCOSE 166 mg/dL (70-99); UREA NITROGEN (BUN) 53 mg/dL (9-23)
[2016-12-27 09:26] LABS: INTER. NORMALIZED RATIO 2.1; PROTHROMBIN TIME 24.2 SEC (10.2-12.9)
[2016-12-27 13:09] LABS: POINT-OF-CARE METER ID UU13113725
[2016-12-27 15:52] LABS: POINT-OF-CARE METER ID UU13113774
[2016-12-27 21:39] LABS: POINT-OF-CARE METER ID UU13113774
[2016-12-28 06:08] LABS: POINT-OF-CARE METER ID UU13113774
[2016-12-28 06:44] LABS: ANION GAP 9 MEQ/L (2-14); CHLORIDE 99 MEQ/L (99-109); GFR ESTIMATE (CALCULATED) 27 mL/min/; POTASSIUM 4.5 MEQ/L (3.7-5.4); SAMPLE HEMOLYSIS CHECK 0; SAMPLE ICTERIC CHECK 0; SAMPLE LIPEMIA CHECK 0; SODIUM 135 MEQ/L (136-147); UREA NITROGEN (BUN) 33 mg/dL (9-23)
[2016-12-28 06:47] LABS: GLUCOSE 107 mg/dL (70-99)
[2016-12-28 08:13] VITALS: BP 124/60
[2016-12-28 09:54] LABS: INTER. NORMALIZED RATIO 2.2; PROTHROMBIN TIME 24.5 SEC (10.2-12.9)
[2016-12-28 11:47] LABS: POINT-OF-CARE METER ID UU13113774
[2016-12-28 12:32] VITALS: BP 118/58
[2016-12-28 16:49] LABS: POINT-OF-CARE METER ID UU13113725
[2016-12-28 17:06] VITALS: BP 116/56
[2016-12-28 20:11] VITALS: BP 116/72
[2016-12-28 21:32] LABS: POINT-OF-CARE METER ID UU13113725
[2016-12-29 00:30] VITALS: BP 118/56
[2016-12-29 04:55] VITALS: BP 110/64
[2016-12-29 06:22] LABS: POINT-OF-CARE METER ID UU13113774
[2016-12-29 06:41] LABS: INTER. NORMALIZED RATIO 2.2; PROTHROMBIN TIME 24.4 SEC (10.2-12.9)
[2016-12-29 07:35] VITALS: BP 115/56
[2016-12-29 10:47] LABS: POINT-OF-CARE METER ID UU13113774
[2016-12-29 13:38] LABS: BASOPHIL COUNT 0.1 K/uL (0-0.1); EOSINOPHIL (%) 0 % (0-5); HEMATOCRIT 28.7 % (38.0-50.0); IMMATURE GRANULOCYTE (%) 0.4 % (0.0-0.7); INSTRUMENT ABS NEUTROPHIL CT 4.2 K/uL; LYMPHOCYTE COUNT 0.8 K/uL (1.0-2.8); MCH 29.9 PG (29.0-34.0); MCHC 32.1 G/DL (30.0-36.0); MCV 93.2 FL (86-99); MEAN PLAT.VOLUME 11.2 uM^3 (9.0-12.4); MONOCYTE (%) 11.1 % (3-12); MONOCYTE COUNT 0.6 K/uL (0-0.8); NEUTROPHIL COUNT 4.2 K/uL (1.8-6.4); PLATELET COUNT 113 K/uL (156-360); RBC DIS.WIDTH-CV 15.2 % (11.8-14.6); RBC DIS.WIDTH-SD 51.6 % (39-53); RED BLOOD COUNT 3.08 M/uL (4.00-5.50); WHITE BLOOD COUNT 5.7 K/uL (4.1-10.2)
[2016-12-29 13:46] LABS: ANION GAP 9 MEQ/L (2-14); CHLORIDE 98 MEQ/L (99-109); POTASSIUM 4.6 MEQ/L (3.7-5.4); SAMPLE HEMOLYSIS CHECK 0; SAMPLE ICTERIC CHECK 0; SAMPLE LIPEMIA CHECK 0; SODIUM 134 MEQ/L (136-147)
[2016-12-29 13:53] LABS: GFR ESTIMATE (CALCULATED) 22 mL/min/; GLUCOSE 155 mg/dL (70-99); UREA NITROGEN (BUN) 47 mg/dL (9-23)
[2016-12-29 17:53] LABS: POINT-OF-CARE METER ID UU13113774
[2016-12-29 20:01] VITALS: BP 132/64
[2016-12-29 20:52] LABS: POINT-OF-CARE METER ID UU13113774
[2016-12-29 23:14] VITALS: BP 104/62
[2016-12-30 06:04] LABS: POINT-OF-CARE METER ID UU13113725
[2016-12-30 06:46] LABS: INTER. NORMALIZED RATIO 2.4; PROTHROMBIN TIME 27.2 SEC (10.2-12.9)
[2016-12-30 07:09] LABS: ANION GAP 9 MEQ/L (2-14); CHLORIDE 99 MEQ/L (99-109); GFR ESTIMATE (CALCULATED) 30 mL/min/; POTASSIUM 4.2 MEQ/L (3.7-5.4); SAMPLE HEMOLYSIS CHECK 0; SAMPLE ICTERIC CHECK 0; SAMPLE LIPEMIA CHECK 0; SODIUM 134 MEQ/L (136-147); UREA NITROGEN (BUN) 29 mg/dL (9-23)
[2016-12-30 07:10] LABS: GLUCOSE 108 mg/dL (70-99)
[2016-12-30 07:31] VITALS: BP 110/55
[2016-12-30 11:49] LABS: POINT-OF-CARE METER ID UU13113774
[2016-12-30 16:49] LABS: POINT-OF-CARE METER ID UU13113774
[2016-12-30 16:52] VITALS: BP 126/59
[2016-12-30 21:27] LABS: POINT-OF-CARE METER ID UU13113774
[2016-12-30 23:16] VITALS: BP 116/55
[2016-12-31 06:01] LABS: POINT-OF-CARE METER ID UU13113774
[2016-12-31 06:48] LABS: INTER. NORMALIZED RATIO 2.5; PROTHROMBIN TIME 28.8 SEC (10.2-12.9)
[2016-12-31 07:14] VITALS: BP 134/60
[2016-12-31 07:18] LABS: ANION GAP 9 MEQ/L (2-14); CHLORIDE 100 MEQ/L (99-109); GFR ESTIMATE (CALCULATED) 24 mL/min/; GLUCOSE 103 mg/dL (70-99); POTASSIUM 4.5 MEQ/L (3.7-5.4); SAMPLE HEMOLYSIS CHECK 0; SAMPLE ICTERIC CHECK 0; SAMPLE LIPEMIA CHECK 0; SODIUM 135 MEQ/L (136-147); UREA NITROGEN (BUN) 40 mg/dL (9-23)
[2016-12-31 11:15] LABS: POINT-OF-CARE METER ID UU13113774
[2016-12-31 16:01] LABS: POINT-OF-CARE METER ID UU13113774
[2016-12-31 16:34] VITALS: BP 130/64
[2016-12-31 21:34] LABS: POINT-OF-CARE METER ID UU13113774
[2016-12-31 23:40] VITALS: BP 110/53
[2017-01-01 06:16] LABS: POINT-OF-CARE METER ID UU13113774
[2017-01-01 07:11] VITALS: BP 91/55
[2017-01-01 08:07] LABS: EOSINOPHIL (%) 0 % (0-5); HEMATOCRIT 28.5 % (38.0-50.0); IMMATURE GRANULOCYTE (%) 0.2 % (0.0-0.7); INSTRUMENT ABS NEUTROPHIL CT 2.8 K/uL; LYMPHOCYTE COUNT 0.7 K/uL (1.0-2.8); MCH 29.7 PG (29.0-34.0); MCHC 31.6 G/DL (30.0-36.0); MCV 94.1 FL (86-99); MONOCYTE (%) 12.2 % (3-12); MONOCYTE COUNT 0.5 K/uL (0-0.8); NEUTROPHIL (%) 69.4 % (45-76); NEUTROPHIL COUNT 2.8 K/uL (1.8-6.4); PLATELET COUNT 122 K/uL (156-360); RBC DIS.WIDTH-CV 14.7 % (11.8-14.6); RBC DIS.WIDTH-SD 50.4 % (39-53); RED BLOOD COUNT 3.03 M/uL (4.00-5.50)
[2017-01-01 08:14] LABS: INTER. NORMALIZED RATIO 2.6; PROTHROMBIN TIME 29.5 SEC (10.2-12.9)
[2017-01-01 08:23] LABS: ANION GAP 10 MEQ/L (2-14); CHLORIDE 99 MEQ/L (99-109); POTASSIUM 4.6 MEQ/L (3.7-5.4); SAMPLE HEMOLYSIS CHECK 0; SAMPLE ICTERIC CHECK 0; SAMPLE LIPEMIA CHECK 0; SODIUM 135 MEQ/L (136-147)
[2017-01-01 08:32] LABS: GFR ESTIMATE (CALCULATED) 23 mL/min/; UREA NITROGEN (BUN) 49 mg/dL (9-23)
[2017-01-01 08:34] LABS: GLUCOSE 171 mg/dL (70-99)
[2017-01-01 12:27] LABS: POINT-OF-CARE METER ID UU13113774
[2017-01-01 15:59] VITALS: BP 129/61
[2017-01-01 16:03] LABS: POINT-OF-CARE METER ID UU13113774
[2017-01-01 20:44] LABS: POINT-OF-CARE METER ID UU13113725
[2017-01-02 00:14] VITALS: BP 114/58
[2017-01-02 06:28] LABS: EOSINOPHIL (%) 0 % (0-5); HEMATOCRIT 30.1 % (38.0-50.0); IMMATURE GRANULOCYTE (%) 0.5 % (0.0-0.7); INSTRUMENT ABS NEUTROPHIL CT 2.7 K/uL; LYMPHOCYTE COUNT 0.8 K/uL (1.0-2.8); MCH 28.8 PG (29.0-34.0); MCHC 30.9 G/DL (30.0-36.0); MCV 93.2 FL (86-99); MEAN PLAT.VOLUME 10.6 uM^3 (9.0-12.4); MONOCYTE (%) 13.1 % (3-12); MONOCYTE COUNT 0.5 K/uL (0-0.8); NEUTROPHIL (%) 65.8 % (45-76); NEUTROPHIL COUNT 2.7 K/uL (1.8-6.4); PLATELET COUNT 135 K/uL (156-360); RBC DIS.WIDTH-CV 14.5 % (11.8-14.6); RBC DIS.WIDTH-SD 49.6 % (39-53); RED BLOOD COUNT 3.23 M/uL (4.00-5.50); WHITE BLOOD COUNT 4.1 K/uL (4.1-10.2)
[2017-01-02 06:35] LABS: INTER. NORMALIZED RATIO 2.7; PROTHROMBIN TIME 31.2 SEC (10.2-12.9)
[2017-01-02 06:45] LABS: ANION GAP 8 MEQ/L (2-14); CHLORIDE 98 MEQ/L (99-109); POTASSIUM 4.3 MEQ/L (3.7-5.4); SAMPLE HEMOLYSIS CHECK 0; SAMPLE ICTERIC CHECK 0; SAMPLE LIPEMIA CHECK 0; SODIUM 134 MEQ/L (136-147); TOTAL BILIRUBIN 0.9 MG/DL (0.0-1.0)
[2017-01-02 07:05] LABS: POINT-OF-CARE METER ID UU13113725
[2017-01-02 07:24] LABS: ALKALINE PHOSPHATASE 139 IU/L (3-129); GFR ESTIMATE (CALCULATED) 28 mL/min/; GLUCOSE 97 mg/dL (70-99); UREA NITROGEN (BUN) 33 mg/dL (9-23)
[2017-01-02 08:04] VITALS: BP 126/58
[2017-01-02 11:22] LABS: POINT-OF-CARE METER ID UU13113725
[2017-01-02 15:32] VITALS: BP 119/56
[2017-01-02 16:30] LABS: POINT-OF-CARE METER ID UU13113725
[2017-01-02 21:39] LABS: POINT-OF-CARE METER ID UU13113725
[2017-01-02 23:48] VITALS: BP 122/57
[2017-01-03 05:55] LABS: EOSINOPHIL (%) 0 % (0-5); HEMATOCRIT 28.9 % (38.0-50.0); IMMATURE GRANULOCYTE (%) 0.3 % (0.0-0.7); INSTRUMENT ABS NEUTROPHIL CT 2.4 K/uL; LYMPHOCYTE COUNT 0.8 K/uL (1.0-2.8); MCHC 32.2 G/DL (30.0-36.0); MCV 93.2 FL (86-99); MEAN PLAT.VOLUME 10.6 uM^3 (9.0-12.4); MONOCYTE (%) 12.8 % (3-12); MONOCYTE COUNT 0.5 K/uL (0-0.8); NEUTROPHIL (%) 64.9 % (45-76); NEUTROPHIL COUNT 2.4 K/uL (1.8-6.4); PLATELET COUNT 120 K/uL (156-360); RBC DIS.WIDTH-CV 14.5 % (11.8-14.6); RBC DIS.WIDTH-SD 49.6 % (39-53); WHITE BLOOD COUNT 3.7 K/uL (4.1-10.2)
[2017-01-03 06:16] LABS: INTER. NORMALIZED RATIO 2.9; PROTHROMBIN TIME 32.9 SEC (10.2-12.9)
[2017-01-03 06:20] LABS: ANION GAP 9 MEQ/L (2-14); CHLORIDE 98 MEQ/L (99-109); GFR ESTIMATE (CALCULATED) 24 mL/min/; GLUCOSE 104 mg/dL (70-99); POTASSIUM 4.3 MEQ/L (3.7-5.4); SAMPLE HEMOLYSIS CHECK 0; SAMPLE ICTERIC CHECK 0; SAMPLE LIPEMIA CHECK 0; SODIUM 135 MEQ/L (136-147); UREA NITROGEN (BUN) 42 mg/dL (9-23); VANCOMYCIN, TROUGH 15.5 MCG/ML (10-20)
[2017-01-03 06:42] LABS: POINT-OF-CARE METER ID UU13113774
[2017-01-03 08:16] VITALS: BP 133/60
[2017-01-03 11:51] LABS: POINT-OF-CARE METER ID UU13113725
[2017-01-03 16:10] VITALS: BP 115/58
[2017-01-03 16:36] LABS: POINT-OF-CARE METER ID UU13113774
[2017-01-03 21:12] LABS: POINT-OF-CARE METER ID UU13113725
[2017-01-04 00:48] VITALS: BP 123/57
[2017-01-04 06:11] LABS: POINT-OF-CARE METER ID UU13113725
[2017-01-04 06:40] VITALS: BP 131/63
[2017-01-04 07:10] LABS: INTER. NORMALIZED RATIO 2.5; PROTHROMBIN TIME 28.8 SEC (10.2-12.9)
[2017-01-04 11:46] LABS: POINT-OF-CARE METER ID UU13113725
[2017-01-04 15:00] VITALS: BP 121/60
[2017-01-04 16:37] LABS: POINT-OF-CARE METER ID UU13113774
[2017-01-04 21:25] LABS: POINT-OF-CARE METER ID UU13113774
[2017-01-05 00:40] VITALS: BP 98/46
[2017-01-05 05:58] LABS: POINT-OF-CARE METER ID UU13113725
[2017-01-05 08:00] LABS: EOSINOPHIL (%) 0 % (0-5); HEMATOCRIT 28.1 % (38.0-50.0); IMMATURE GRANULOCYTE (%) 0.3 % (0.0-0.7); INSTRUMENT ABS NEUTROPHIL CT 2.1 K/uL; LYMPHOCYTE COUNT 0.8 K/uL (1.0-2.8); MCH 30.1 PG (29.0-34.0); MCHC 32.4 G/DL (30.0-36.0); MEAN PLAT.VOLUME 10.9 uM^3 (9.0-12.4); MONOCYTE (%) 12.6 % (3-12); MONOCYTE COUNT 0.4 K/uL (0-0.8); NEUTROPHIL (%) 63.7 % (45-76); NEUTROPHIL COUNT 2.1 K/uL (1.8-6.4); PLATELET COUNT 118 K/uL (156-360); RBC DIS.WIDTH-CV 14.2 % (11.8-14.6); RBC DIS.WIDTH-SD 48.2 % (39-53); RED BLOOD COUNT 3.02 M/uL (4.00-5.50); WHITE BLOOD COUNT 3.3 K/uL (4.1-10.2)
[2017-01-05 08:14] LABS: INTER. NORMALIZED RATIO 2.5; PROTHROMBIN TIME 28.8 SEC (10.2-12.9)
[2017-01-05 08:25] LABS: ANION GAP 7 MEQ/L (2-14); CHLORIDE 99 MEQ/L (99-109); GFR ESTIMATE (CALCULATED) 28 mL/min/; GLUCOSE 146 mg/dL (70-99); POTASSIUM 4.4 MEQ/L (3.7-5.4); SAMPLE HEMOLYSIS CHECK 0; SAMPLE ICTERIC CHECK 0; SAMPLE LIPEMIA CHECK 0; SODIUM 135 MEQ/L (136-147); UREA NITROGEN (BUN) 42 mg/dL (9-23)
[2017-01-05 11:21] LABS: POINT-OF-CARE METER ID UU13113774
[2017-01-05 16:00] VITALS: BP 140/60
[2017-01-05 16:04] LABS: POINT-OF-CARE METER ID UU13113725
[2017-01-05 21:42] LABS: POINT-OF-CARE METER ID UU13113725
[2017-01-06] VITALS: BP 162/74
[2017-01-06 06:15] LABS: POINT-OF-CARE METER ID UU13113725
[2017-01-06 06:34] LABS: INTER. NORMALIZED RATIO 2.6; PROTHROMBIN TIME 29.3 SEC (10.2-12.9)
[2017-01-06 07:30] VITALS: BP 128/60
[2017-01-06 11:23] LABS: POINT-OF-CARE METER ID UU13113774
[2017-01-06 16:35] VITALS: BP 119/57
[2017-01-06 16:43] LABS: POINT-OF-CARE METER ID UU13113725
[2017-01-06 21:38] LABS: POINT-OF-CARE METER ID UU13113725
[2017-01-07] VITALS: BP 151/69
[2017-01-07 05:30] LABS: POINT-OF-CARE METER ID UU13113774
[2017-01-07 06:43] LABS: INTER. NORMALIZED RATIO 2.6; PROTHROMBIN TIME 29.5 SEC (10.2-12.9)
[2017-01-07 06:55] LABS: IRON 38 MCG/DL (35-150)
[2017-01-07 08:12] VITALS: BP 130/66
[2017-01-07 08:16] LABS: POINT-OF-CARE METER ID UU13113774
[2017-01-07 11:49] LABS: POINT-OF-CARE METER ID UU13113774
[2017-01-07 16:14] LABS: POINT-OF-CARE METER ID UU13113725
[2017-01-07 22:11] LABS: POINT-OF-CARE METER ID UU13113774
[2017-01-07 23:07] VITALS: BP 120/62
[2017-01-08 06:21] LABS: POINT-OF-CARE METER ID UU13113725
[2017-01-08 07:16] VITALS: BP 132/72
[2017-01-08 08:39] LABS: INTER. NORMALIZED RATIO 2.3; PROTHROMBIN TIME 26.3 SEC (10.2-12.9)
[2017-01-08 08:40] LABS: EOSINOPHIL (%) 0 % (0-5); HEMATOCRIT 29.6 % (38.0-50.0); IMMATURE GRANULOCYTE (%) 0.8 % (0.0-0.7); INSTRUMENT ABS NEUTROPHIL CT 2.1 K/uL; MCH 28.8 PG (29.0-34.0); MCHC 31.1 G/DL (30.0-36.0); MCV 92.5 FL (86-99); MEAN PLAT.VOLUME 10.3 uM^3 (9.0-12.4); MONOCYTE (%) 11.6 % (3-12); MONOCYTE COUNT 0.4 K/uL (0-0.8); NEUTROPHIL (%) 58.1 % (45-76); NEUTROPHIL COUNT 2.1 K/uL (1.8-6.4); PLATELET COUNT 127 K/uL (156-360); RBC DIS.WIDTH-CV 14.3 % (11.8-14.6); RBC DIS.WIDTH-SD 48.2 % (39-53); WHITE BLOOD COUNT 3.6 K/uL (4.1-10.2)
[2017-01-08 09:24] LABS: ANION GAP 9 MEQ/L (2-14); CHLORIDE 98 MEQ/L (99-109); GFR ESTIMATE (CALCULATED) 28 mL/min/; GLUCOSE 156 mg/dL (70-99); POTASSIUM 4.3 MEQ/L (3.7-5.4); SAMPLE HEMOLYSIS CHECK 0; SAMPLE ICTERIC CHECK 0; SAMPLE LIPEMIA CHECK 0; SODIUM 134 MEQ/L (136-147); UREA NITROGEN (BUN) 47 mg/dL (9-23)
[2017-01-08 12:10] LABS: POINT-OF-CARE METER ID UU13113725
[2017-01-08 12:14] VITALS: BP 134/68
[2017-01-08] MEDS ORDERED: ALDACTONE100 MG PO (13:35)
[2017-01-08] MEDS ORDERED: BUMETANIDE1 MG PO (13:35)
[2017-01-08] MEDS ORDERED: CITALOPRAM HBR10 MG PO (13:45)
[2017-01-08 15:45] LABS: POINT-OF-CARE METER ID UU13113725
[2017-01-08 16:33] VITALS: BP 128/68
== END 2017-01-08 18:30 | disposition home health service (06) | DRG 871 ==
LOC: EME 12:38 → 5EAST 16:08 → EDOF 16:08 → 4EAST 16:08 → ENRESERV 16:10 → 4EAST 19:15 → ENRESERV 12-24 18:09 → 5EAST 12-24 23:07 → ENPENDDIS 01-08 → 5EAST 01-08 18:30
PROVIDERS: Emergency Medicine; Hospitalist; Internal Medicine; Internal Medicine Nephrology; Physician Assistant; Student in an Organized Health Care Education/Training Program
PROC: 5A09357 Assistance with Respiratory Ventilation, Less than 24 Consecutive Hours, Continuous Positive Airway Pressure (ICD-10-PCS; principal; 2016-12-14)
PROC: B548ZZA Ultrasonography of Superior Vena Cava, Guidance (ICD-10-PCS; 2016-12-19)
PROC: 02HV33Z Insertion of Infusion Device into Superior Vena Cava, Percutaneous Approach (ICD-10-PCS; 2016-12-19)
PROC: 5A1D70Z Performance of Urinary Filtration, Intermittent, Less than 6 Hours Per Day (ICD-10-PCS; 2016-12-19)
PROC: B5181ZA Fluoroscopy of Superior Vena Cava using Low Osmolar Contrast, Guidance (ICD-10-PCS; 2016-12-26)
PROC: 03PY33Z Removal of Infusion Device from Upper Artery, Percutaneous Approach (ICD-10-PCS; 2016-12-26)
PROC: 02HV33Z Insertion of Infusion Device into Superior Vena Cava, Percutaneous Approach (ICD-10-PCS; 2016-12-26)
PROC: 0JH63XZ Insertion of Tunneled Vascular Access Device into Chest Subcutaneous Tissue and Fascia, Percutaneous Approach (ICD-10-PCS; 2016-12-26)
DX: A40.9 Streptococcal sepsis, unspecified (principal); A40.1 Sepsis due to streptococcus, group B; N17.0 Acute kidney failure with tubular necrosis; R65.20 Severe sepsis without septic shock; N39.0 Urinary tract infection, site not specified; E87.5 Hyperkalemia; E87.2 Acidosis; I48.2 Chronic atrial fibrillation; I50.22 Chronic systolic (congestive) heart failure; I13.2 Hypertensive heart and chronic kidney disease with heart failure and with stage 5 chronic kidney disease, or end stage renal disease; N18.6 End stage renal disease; E11.22 Type 2 diabetes mellitus with diabetic chronic kidney disease; J44.0 Chronic obstructive pulmonary disease with (acute) lower respiratory infection; L89.322 Pressure ulcer of left buttock, stage 2; E11.622 Type 2 diabetes mellitus with other skin ulcer; L03.116 Cellulitis of left lower limb; L03.115 Cellulitis of right lower limb; L97.821 Non-pressure chronic ulcer of other part of left lower leg limited to breakdown of skin; R18.8 Other ascites; F32.1 Major depressive disorder, single episode, moderate; D69.6 Thrombocytopenia, unspecified; K22.0 Achalasia of cardia; I80.8 Phlebitis and thrombophlebitis of other sites; L03.113 Cellulitis of right upper limb; E66.01 Morbid (severe) obesity due to excess calories; Z68.41 Body mass index [BMI] 40.0-44.9, adult; B96.20 Unspecified Escherichia coli [E. coli] as the cause of diseases classified elsewhere; Z16.12 Extended spectrum beta lactamase (ESBL) resistance; R21 Rash and other nonspecific skin eruption; K74.60 Unspecified cirrhosis of liver; D64.9 Anemia, unspecified; G47.30 Sleep apnea, unspecified; K21.9 Gastro-esophageal reflux disease without esophagitis; I89.0 Lymphedema, not elsewhere classified; I87.8 Other specified disorders of veins; I87.2 Venous insufficiency (chronic) (peripheral); E03.9 Hypothyroidism, unspecified; Z75.1 Person awaiting admission to adequate facility elsewhere; Z79.01 Long term (current) use of anticoagulants; Z79.4 Long term (current) use of insulin; Z80.51 Family history of malignant neoplasm of kidney; Z82.49 Family history of ischemic heart disease and other diseases of the circulatory system; Z87.891 Personal history of nicotine dependence; Z95.0 Presence of cardiac pacemaker; Z98.41 Cataract extraction status, right eye; Z98.42 Cataract extraction status, left eye; Z23 Encounter for immunization
CPT/HCPCS: 36600; 71010; 74176; 80048; 80048 91; 80053; 80069; 80074; 80162; 80202; 81003; 82565; 82570; 82803; 82948; 83540; 83605; 83735; 84156; 84439; 84443; 84466; 84484; 85025; 85027; 85610; 85730; 86704; 86705; 86706; 86709; 86803; 87040; 87077; 87086; 87186; 87340; 87641; 87801; 90686; 93005; 93970; 94640; 94640 76; 94660; 94760; 94799; 97530 GO; 97530 GP; 99281; 99285; C1750; C1753; C1788; J0610; J0690; J0696; J0881; J1335; J1644; J1756; J1815; J1885; J1940; J2250; J2543; J3010; J3370; J7030; J7050; J7070; J7120; P9047; S0020

== ENCOUNTER 2017-02-18 15:07 | Emergency (ER) | payer OTHER ==
[~2017-02-18] VITALS: Ht 172.7 cm; Wt 129.5 kg
[~2017-02-18 15:07] MED LIST changes: +ALDACTONE100 MG PO; +BUMETANIDE1 MG PO; +CITALOPRAM HBR10 MG PO
[2017-02-18 15:44] LABS: CARBON DIOXIDE (BICARBONATE) 33.4 MEQ/L (20-31); HEMATOCRIT 29.1 % (38.0-50.0); MCH 29.3 PG (29.0-34.0); MCHC 32.3 G/DL (30.0-36.0); MCV 90.7 FL (86-99); MEAN PLAT.VOLUME 10.4 uM^3 (9.0-12.4); PLATELET COUNT 81 K/uL (156-360); RBC DIS.WIDTH-CV 14.6 % (11.8-14.6); RED BLOOD COUNT 3.21 M/uL (4.00-5.50); WHITE BLOOD COUNT 3.3 K/uL (4.1-10.2)
[2017-02-18 16:00] LABS: CHLORIDE 101 mEq/L (99-109); POTASSIUM 4.1 mEq/L (3.7-5.4)
[2017-02-18 16:01] LABS: SODIUM 136 mEq/L (136-147)
[2017-02-18 16:02] LABS: GLUCOSE 373 mg/dL (70-99)
[2017-02-18 16:04] LABS: ANION GAP 9 MEQ/L (2-14)
[2017-02-18 16:06] LABS: GFR ESTIMATE (CALCULATED) 18 mL/min/
[2017-02-18 16:07] LABS: UREA NITROGEN (BUN) 74 mg/dL (9-23)
[2017-02-18] MEDS ORDERED: MIRALAX17 GM PO (17:40)
[2017-02-18 17:48] LABS: ADD MIUA? YES; BILIRUBIN NEGATIVE; BLOOD NEGATIVE; COLOR AMBER ((YELLOW)); GLUCOSE (STRIP) 50; KETONES NEGATIVE; LEUKOCYTES SMALL; NITRITE NEGATIVE; PROTEIN (STRIP) 30; SPECIFIC GRAVITY 1.015 (1.000-1.030)
[2017-02-18 17:58] LABS: BACTERIA RARE /HPF; EPITHELIAL CELLS RARE /HPF; MUCUS NONE SEEN /LPF; UCUL ADDED? YES
[2017-02-18 19:04] VITALS: BP 141/59
== END 2017-02-18 19:07 | disposition home or self-care (01) ==
LOC: EME 15:07
PROVIDERS: Emergency Medicine
DX: N39.0 Urinary tract infection, site not specified (principal); R18.8 Other ascites; I12.9 Hypertensive chronic kidney disease with stage 1 through stage 4 chronic kidney disease, or unspecified chronic kidney disease; E11.22 Type 2 diabetes mellitus with diabetic chronic kidney disease; N18.9 Chronic kidney disease, unspecified; Z79.4 Long term (current) use of insulin; E03.9 Hypothyroidism, unspecified; J44.9 Chronic obstructive pulmonary disease, unspecified; Z80.51 Family history of malignant neoplasm of kidney; Z95.0 Presence of cardiac pacemaker; Z79.01 Long term (current) use of anticoagulants; Z87.891 Personal history of nicotine dependence
CPT/HCPCS: 80048; 81003; 82010; 82803; 85027; 87086; 93005; 99281; 99285; J2405; J7030

== ENCOUNTER 2017-03-06 08:24 | Day surgery (SDC) | payer OTHER ==
[~2017-03-06] VITALS: Ht 177.8 cm; Wt 124.7 kg
[~2017-03-06 08:24] MED LIST changes: +MIRALAX17 GM PO
[2017-03-06 08:48] LABS: HEMATOCRIT 32.3 % (38.0-50.0); MCH 30.7 PG (29.0-34.0); MCHC 33.4 G/DL (30.0-36.0); MCV 91.8 FL (86-99); RBC DIS.WIDTH-CV 15.1 % (11.8-14.6); RBC DIS.WIDTH-SD 50.7 % (39-53); RED BLOOD COUNT 3.52 M/uL (4.00-5.50); WHITE BLOOD COUNT 5.2 K/uL (4.1-10.2)
[2017-03-06 08:49] LABS: PLATELET COUNT 108 K/uL (156-360)
[2017-03-06 08:55] LABS: INTER. NORMALIZED RATIO 1.5; PROTHROMBIN TIME 17.2 SEC (10.2-12.9)
[2017-03-06 08:57] LABS: PTT 35.2 SEC (25-37)
[2017-03-06 09:09] LABS: ANION GAP 10 MEQ/L (2-14); CHLORIDE 97 MEQ/L (99-109); POTASSIUM 4.2 MEQ/L (3.7-5.4); SAMPLE HEMOLYSIS CHECK 0; SAMPLE ICTERIC CHECK 0; SAMPLE LIPEMIA CHECK 0; SODIUM 138 MEQ/L (136-147)
[2017-03-06 09:15] LABS: GFR ESTIMATE (CALCULATED) 19 mL/min/; GLUCOSE 165 mg/dL (70-99); UREA NITROGEN (BUN) 48 mg/dL (9-23)
[2017-03-06 09:20] VITALS: BP 169/77
[2017-03-06 10:07] LABS: METH RESISTANT S AUREUS PCR POSITIVE (NEGATIVE)
[2017-03-06 10:10] LABS: PROBE CHECK PASS
[2017-03-06 13:12] LABS: POINT-OF-CARE METER ID UU13113675
[2017-03-06 13:25] VITALS: BP 139/70
[2017-03-06 14:06] VITALS: BP 147/64
== END 2017-03-06 14:13 | disposition home or self-care (01) ==
LOC: SDC 08:24
PROVIDERS: Surgery
DX: I12.0 Hypertensive chronic kidney disease with stage 5 chronic kidney disease or end stage renal disease (principal); E11.22 Type 2 diabetes mellitus with diabetic chronic kidney disease; N18.6 End stage renal disease; Z99.2 Dependence on renal dialysis; Z87.891 Personal history of nicotine dependence; Z79.4 Long term (current) use of insulin; Z95.0 Presence of cardiac pacemaker; I25.10 Atherosclerotic heart disease of native coronary artery without angina pectoris; J44.9 Chronic obstructive pulmonary disease, unspecified
CPT/HCPCS: 80048; 82948; 85027; 85610; 85730; 87641; J0690; J1644; J2250; J2720; J3010

== ENCOUNTER 2017-05-20 10:15 | Day surgery (SDC) | payer OTHER ==
[~2017-05-20] VITALS: Ht 175.3 cm; Wt 122.4 kg
== END 2017-05-20 12:16 | disposition home or self-care (01) ==
LOC: CATH 10:15
PROVIDERS: Surgery
DX: T82.858A Stenosis of other vascular prosthetic devices, implants and grafts, initial encounter (principal); Y83.2 Surgical operation with anastomosis, bypass or graft as the cause of abnormal reaction of the patient, or of later complication, without mention of misadventure at the time of the procedure; E11.22 Type 2 diabetes mellitus with diabetic chronic kidney disease; N18.6 End stage renal disease; Z99.2 Dependence on renal dialysis; I48.91 Unspecified atrial fibrillation; I25.10 Atherosclerotic heart disease of native coronary artery without angina pectoris; J44.9 Chronic obstructive pulmonary disease, unspecified; Z79.01 Long term (current) use of anticoagulants; Z79.4 Long term (current) use of insulin; Z87.891 Personal history of nicotine dependence
CPT/HCPCS: 82948; 87641; C1725; C1769; C1894; J1644; J2250; J3010

== ENCOUNTER 2017-06-03 20:36 | Emergency (ER) | payer OTHER ==
[~2017-06-03] VITALS: Ht 177.8 cm; Wt 122.7 kg
[2017-06-03 21:57] LABS: BASOPHIL (%) 0.6 % (0-1); EOSINOPHIL (%) 0 % (0-5); HEMATOCRIT 31.7 % (38.0-50.0); HEMOGLOBIN 10.9 G/DL (12.5-16.6); IMMATURE GRANULOCYTE (%) 0.6 % (0.0-0.7); LYMPHOCYTE (%) 30.6 % (15-42); LYMPHOCYTE COUNT 1.1 K/uL (1.0-2.8); MCH 30.6 PG (29.0-34.0); MCHC 34.4 G/DL (30.0-36.0); MONOCYTE (%) 10.2 % (3-12); MONOCYTE COUNT 0.4 K/uL (0-0.8); NEUTROPHIL COUNT 2.1 K/uL (1.8-6.4); PLATELET COUNT 75 K/uL (156-360); RBC DIS.WIDTH-CV 14.5 % (11.8-14.6); RBC DIS.WIDTH-SD 46.6 % (39-53); RED BLOOD COUNT 3.56 M/uL (4.00-5.50); WHITE BLOOD COUNT 3.6 K/uL (4.1-10.2)
[2017-06-03 22:05] LABS: CHLORIDE 98 mEq/L (99-109); POTASSIUM 4.8 mEq/L (3.7-5.4); SODIUM 135 mEq/L (136-147)
[2017-06-03 22:06] LABS: PTT 52.5 SEC (25-37)
[2017-06-03 22:07] LABS: GLUCOSE 310 mg/dL (70-99)
[2017-06-03 22:10] LABS: CREATININE 4.2 mg/dL (0.6-1.3); GFR ESTIMATE (CALCULATED) 15 mL/min/ (58.99-99999)
[2017-06-03 22:11] LABS: UREA NITROGEN (BUN) 56 mg/dL (9-23)
[2017-06-03 22:45] LABS: INTER. NORMALIZED RATIO 6.7
[2017-06-03] MEDS ORDERED: LEVEMIR100 UNIT/2 SC (23:12)
[2017-06-04 01:00] VITALS: BP 130/56
== END 2017-06-04 01:04 | disposition home or self-care (01) ==
LOC: EME → EDBD 20:36 → EME 20:36
PROVIDERS: Emergency Medicine
DX: E11.65 Type 2 diabetes mellitus with hyperglycemia (principal); R79.1 Abnormal coagulation profile; S90.422A Blister (nonthermal), left great toe, initial encounter; E11.51 Type 2 diabetes mellitus with diabetic peripheral angiopathy without gangrene; M79.89 Other specified soft tissue disorders; M19.072 Primary osteoarthritis, left ankle and foot; M77.32 Calcaneal spur, left foot; E11.22 Type 2 diabetes mellitus with diabetic chronic kidney disease; N18.9 Chronic kidney disease, unspecified; J45.909 Unspecified asthma, uncomplicated; Z79.4 Long term (current) use of insulin; Z79.01 Long term (current) use of anticoagulants; Z87.891 Personal history of nicotine dependence; Z95.0 Presence of cardiac pacemaker; Z98.890 Other specified postprocedural states; Z80.51 Family history of malignant neoplasm of kidney; Z87.19 Personal history of other diseases of the digestive system; Z90.49 Acquired absence of other specified parts of digestive tract; Z88.1 Allergy status to other antibiotic agents; Z88.8 Allergy status to other drugs, medicaments and biological substances
CPT/HCPCS: 73630; 80048; 82948; 85025; 85610; 85730; 86850; 86900; 86901; 99281; 99284

== ENCOUNTER → 2017-06-21 | Outpatient (CLI) | payer OTHER ==
[~2017-06-21] MED LIST changes: +LEVEMIR100 UNIT/2 SC; +VICTOZA 2-0.6 MG/0.1 SC
== END | disposition home or self-care (01) ==
LOC: AMB 08:16
PROC: 02PYX3Z Removal of Infusion Device from Great Vessel, External Approach (ICD-10-PCS; principal; 2017-06-21)
DX: Z45.2 Encounter for adjustment and management of vascular access device (principal); N18.6 End stage renal disease

== ENCOUNTER 2017-08-15 07:50 | Day surgery (SDC) | payer OTHER ==
[~2017-08-15] VITALS: Ht 177.8 cm; Wt 122.5 kg
== END 2017-08-15 10:08 | disposition home or self-care (01) ==
LOC: CATH 07:50
PROVIDERS: Surgery
PROC: B51W1ZZ Fluoroscopy of Dialysis Shunt/Fistula using Low Osmolar Contrast (ICD-10-PCS; principal; 2017-08-15)
PROC: 05HY33Z Insertion of Infusion Device into Upper Vein, Percutaneous Approach (ICD-10-PCS; principal; 2017-08-15)
PROC: 057Y3ZZ Dilation of Upper Vein, Percutaneous Approach (ICD-10-PCS; principal; 2017-08-15)
PROC: 3E03317 Introduction of Other Thrombolytic into Peripheral Vein, Percutaneous Approach (ICD-10-PCS; principal; 2017-08-15)
DX: T82.858A Stenosis of other vascular prosthetic devices, implants and grafts, initial encounter (principal); Y83.2 Surgical operation with anastomosis, bypass or graft as the cause of abnormal reaction of the patient, or of later complication, without mention of misadventure at the time of the procedure; E11.22 Type 2 diabetes mellitus with diabetic chronic kidney disease; N18.6 End stage renal disease; Z99.2 Dependence on renal dialysis; I48.91 Unspecified atrial fibrillation; I25.10 Atherosclerotic heart disease of native coronary artery without angina pectoris; J44.9 Chronic obstructive pulmonary disease, unspecified; K25.9 Gastric ulcer, unspecified as acute or chronic, without hemorrhage or perforation; Z95.0 Presence of cardiac pacemaker; Z79.4 Long term (current) use of insulin; Z79.01 Long term (current) use of anticoagulants
CPT/HCPCS: 82948; 87641; C1725; C1769; C1894; J1644; J2250; J3010